=== PATIENT | female | born 1965 | race Caucasian/White ===

== ENCOUNTER 2023-06-26 09:45 | Outpatient (OUT) | payer BC, SELFPAY ==
[2023-06-26 10:52] LABS: Basophils Absolute Auto 0.1 10^3/uL (0.0-0.1); Eosinophils Absolute Auto 0.2 10^3/uL (0.0-0.7); Eosinophils Percent Auto 3.6 % (0.9-7.0); Hemoglobin 13.7 g/dL (12.0-16.0); Immature Granulocytes Abs Auto 0.02 10^3/uL (0.00-0.03); Immature Granulocytes Pct Auto 0.3 % (0.0-0.5); Lymphocytes Absolute Auto 2.2 10^3/uL (1.2-3.8); Lymphocytes Percent Auto 32.1 % (20.5-60.0); Mean Corpuscular HGB Conc 31.9 g/dL (29.9-35.2); Mean Corpuscular Hemoglobin 29.1 pg (26.7-34.0); Mean Corpuscular Volume 91.5 fL (81.0-99.0); Monocytes Absolute Auto 0.4 10^3/uL (0.3-0.8); Monocytes Percent Auto 6.6 % (1.7-12.0); Neutrophils Absolute Auto 3.8 10^3/uL (1.4-6.5); Neutrophils Percent Auto 56.4 % (43.0-75.0); Platelet Count 361 10^3/uL (150-450); Red Cell Distribution Width 12.8 % (11.0-15.0); White Blood Count 6.7 10^3/uL (4.0-11.0)
[2023-06-26 11:01] LABS: Alanine Aminotransferase 20 U/L (14-59); Albumin Level 3.2 g/dL (3.4-5.0); Alkaline Phosphatase 66 U/L (46-116); Aspartate Amino Transferase 12 U/L (15-37); BUN Creatinine Ratio 10.7; Bilirubin Total 0.4 mg/dL (0.2-1.0); Calcium 8.5 mg/dL (8.5-10.1); Carbon Dioxide 26.1 mmol/L (21.0-32.0); Chloride 106 mmol/L (98-107); Chol HDL Ratio 2.6; Cholesterol 170 mg/dL (<=200); Estimated GFR (African America >60 (>=60); Estimated GFR (Non-African Ame >60 (>=60); Globulin 3.3 g/dL; Glucose 89 mg/dL (74-106); HDL Cholesterol 65 mg/dL (40-60); Potassium 4.1 mmol/L (3.5-5.1); Sodium 142 mmol/L (136-145); Total Protein 6.5 g/dL (6.4-8.2); Triglycerides 80 mg/dL (<=150)
[2023-06-26 14:30] LABS: Free T4 0.77 ng/dL (0.76-1.46)
== END 2023-06-26 09:46 | disposition home or self-care (01) ==
LOC: LAB 09:50
PROVIDERS: PCP Family Medicine; Visit Provider Family Medicine
DX: E55.9 Vitamin D deficiency, unspecified (principal); Z00.00 Encounter for general adult medical examination without abnormal findings
CPT/HCPCS: 36415; 80053; 80061; 82306; 84439; 84443; 85025

== ENCOUNTER 2024-02-06 09:30 | Outpatient (OUT) | payer BC, SELFPAY ==
--- NOTE | 2024-02-06 | US_ITS ---
The [address] [address] Patient Name: AGUEDA MARISCAL MRN: [id number] date: 1965 Sex: F Assigned Patient Location: US Current Patient Location: US Accession/Order Number: [id number] Exam Date: 02/06/2024 09:40 Report Date: 02/06/2024 12:44 At the request of: BISMARK FALCON Procedure: US pelvis w/ transvaginal EXAMINATION: US pelvis w/ transvaginal HISTORY: POSTMENOPAUSAL BLEDDING COMPARISON: No relevant comparison available. FINDINGS: Transabdominal and transvaginal images The uterus is normal in size and contour measuring 8.0 x 4.7 x 5.6 cm. Myometrial mass measuring 1. 8.2 x 1.8 cm, a fibroid is favored The endometrium measures 10.9 mm The ovaries are not visualized No free fluid US/US pelvis w/ transvaginal IMPRESSION: Thickened endometrial stripe. In light of the patient's postmenopausal bleeding, histopathologic diagnosis is recommended Electronically authenticated by: NATALIE MCKEON Date: 02/06/2024 12:44
--- NOTE | 2024-02-06 | MM_ITS ---
Patient Name: AGUEDA MARISCAL MR#: [id number] : 1965 Exam Date: 02/06/2024 Ordering Doctor: DR BISMARK FALCON RADIOLOGY REPORT PROCEDURE: MM TOMOSYNTHESIS SCREENING BI COMPARISON: MM TOMOSYNTHESIS SCREENING BI, 03/24/2020. MM TOMOSYNTHESIS SCREENING BI, 05/17/2021. INDICATIONS: ENCOUNTER FOR SCREENING FOR MALIGNANT OF BREAST Calculator Name NCI Breast Cancer Risk Assessment Tool 5 Year Breast Cancer Risk 1.50% Lifetime Breast Cancer Risk 9.10% Personal Breast Cancer No Personal Ovarian Cancer No Treatments None Family Cancers Mother with uterine cancer at age 25; Mother with colon cancer at age 52; Aunt-maternal with uterine cancer at age ~30; Aunt-maternal with uterine cancer at age ~30. LOCATION: [facility] BREAST COMPOSITION: The breasts are heterogeneously dense,which may obscure small masses. FINDINGS: DIAGNOSTIC CATEGORY 2--BENIGN FINDING. NO CHANGE FROM COMPARISON. Scattered benign-appearing nodules are present. Scattered benign-appearing calcifications are present. Scattered benign-appearing lymph nodes are present. RIGHT BREAST: No significant suspicious finding. LEFT BREAST: No significant suspicious finding. RECOMMENDATIONS: ROUTINE MAMMOGRAM AND CLINICAL EVALUATION IN 12 MONTHS. PLEASE NOTE: A NORMAL MAMMOGRAM DOES NOT EXCLUDE THE POSSIBILITY OF BREAST CANCER. A CLINICALLY SUSPICIOUS PALPABLE LUMP SHOULD BE BIOPSIED. Dictated by: Jayjay Hubbard MD on 02/06/2024 at 14:19 Approved by: Jayjay Hubbard MD on 02/06/2024 at 14:20
--- OUTSIDE RECORDS SUMMARY | 2024-02-06 09:34 | XMS_ITS | CCD ---
Author Organization [facility] Inform ion Partnership [facility] Care Team Providers Care Fire Support Specialist Name Role Phone ANDREA RESTREPO Attending Unavailable ANDREA RESTREPO Consulting Unavailable NADREA RESTREPO Admitting Unavailable SAIMA PHAM Consulting Unavailable SAIMA PHAM Admitting Unavailable SAIMA PHAM Attending Unavailable SAIMA PHAM Consulting Unavailable SAIMA PHAM KAREN Admitting Unavailable SAIMA PHAM Attending Unavailable ANDREA RESTREPO Admitting Unavailable ANDREA RESTREPO Attending Unavailable ANDREA RESTREPO Consulting Unavailable MD Valerio Cortes Primary Care Provider [phone] DO Keaton Hayes Attending Provider Keaton Hayes Admitting Unavailable Keaton Hayes Attending Unavailable Valerio Cortes Primary Care Unavailable Mary Cortes Unavailable Allergies Allergy Classification Reported Allergen(s) Allergy Type Date of Onset Reaction(s) Facility (2 sources) Codeine Drug Allergy 0 Rash [facility] Repository (2 sources) Ibuprofen Drug Allergy 1 (Ferdinand) 06/17/2011 [facility] (2 sources) Ibuprofen; Translations: [ibuprofen] Drug Allergy 0 irregular heart rate [facility] (1 source) Codeine Drug Allergy 0 [facility] Repository (1 source) Codeine Drug Allergy (Ferdinand) 06/17/2011 [facility] Other Medications Current Medications Medication Drug Class(es) Dates Sig (Normalized) Sig (Original) aluminum hydroxide 80 mg / magnesium trisilicate 14.2 mg chewable tablet (1 source) Start: 05-14-2017 take 1 tablet by mouth once daily Al Hyd-Mg Tr-Alg Ac-Sod Bicarb (Gaviscon) 80-14.2 mg Tablet,Chewable Active 1 TAB PO Daily May 14, 2017 12:00am cholecalciferol 0.05 mg oral capsule (1 source) Vitamin D take 1 capsule by mouth every twenty-four hours Vitamin D 50 MCG (1999) 1 capsule Orally Once a day Active Citalopram (2 sources) Serotonin Reuptake Inhibitor Start: 01-30-2023 take 30 mg by mouth once daily Citalopram Active 30 MG PO Daily January 30, 2023 12:00am take 1 tablet by venkatesh th every twenty-four hours Citalopram Hydrobromide 20 MG 1 tablet Orally Once a day Active dextromethorphan hydrobromide 15 mg / guaiFENesin 400 mg / pseudoephedrine hydrochloride 60 mg oral tablet (1 source) alpha-Adrenergic Agonist, Uncompetitive S-mmvrxz-B-aspartate Receptor Antagonist, Sigma-1 Agonist Start: 07-31-2023 take 4 tablets by mouth every twenty-four hours as needed Capmist DM 60-15-400 MG as needed Orally every 4-6 hours as needed, max 4 tablets in 24 hours for 5 days Jul, Active estradiol 1 mg oral tablet (1 source) Estrogen take 1 tablet by mouth every twenty-four hours Estradiol 1 MG 1 tablet Orally Once a day Active medroxyPROGESTERone acetate 2.5 mg oral tablet (1 source) Progestin Start: 01-30-2023 take 2.5 mg by mouth once daily Medroxyprogesterone Active 2.5 MG PO Daily January 30, 2023 12:00am methylPREDNISolone 4 mg oral tablet (1 source) Corticosteroid Start: 07-31-2023 methylPREDNISolone 4 MG as directed Orally for 6 Jul, Active progesterone 100 mg oral capsule (1 source) Progesterone take 1 capsule by mouth every twenty-four hours Progesterone 100 MG 1 capsule at bedtime Orally Once a day Active simethicone 62.5 mg oral film (2 sources) Start: 05-14-2017 take 80 mg by mouth before mealtime Simethicone (Gas-X) 62.5 mg Strip Active 80 MG PO Before meals May 14, 2017 12:00am Start: 05-01-2017 take 1 tablet by venkatesh th four times daily at bedtime as needed Gas-X 80 MG 1 tablet after meals and at bedtime as needed Orally Four times a day Apr, Not-Taking/PRN Completed/Discontinued Medications Medication Drug Class(es) Dates Sig (Normalized) Sig (Original) acetaminophen 325 mg / HYDROcodone bitartrate 5 mg oral tablet (1 source) Opioid Agonist Start: 0 End: 3 take 1 tablet by mouth every six hours Hydrocodone-Acetaminoph en ([place]) 5-325 mg tablet Discontinued 1 TAB PO Q6H 10 3 October 03, 2019 January 30, 2023 7:25am Aluminum Hydroxide / magnesium carbonate (1 source) Start: 7 take 2 tablets by mouth four times daily at bedtime as needed Gaviscon 80-14.2 MG 2 tablets after meals and at bedtime as needed Orally Four times a day Apr, Not-Taking/PRN docusate sodium 100 mg oral capsule (1 source) take 1 capsule by mouth every twenty-four hours Colace 100 MG 1 capsule as needed Orally Once a day Not-Taking/PRN Fiber-Caps (1 source) Fiber-Caps Not-Taking/PRN hydroCHLOROthiazide 12.5 mg oral capsule (1 source) Thiazide Diuretic Start: 7 End: 3 take 12.5 mg by mouth once daily Hydrochlorothiazide Discontinued 12.5 MG PO Daily May 14, 2017 12:00am January 30, 2023 7:25am IB Guard (12 count box) 90 mg ultra-purified peppermint oil (1 source) take 90 mg by mouth three times daily as needed IB Guard (12 count box) 90 mg ultra-purified peppermint oil 1-2 PO as needed up to 3 times a day Not-Taking/PRN linaclotide (1 source) Guanylate Cyclase-C Agonist Start: 7 take 1 capsule by mouth once daily as needed Linzess 72 72 mcg 1 capsule po one time daily May, Not-Taking/PRN melatonin 3 mg oral tablet (1 source) Start: 7 End: 3 take 3 mg by mouth at bedtime Melatonin Discontinued 3 MG PO Bedtime May 14, 2017 12:00am January 30, 2023 7:25am ondansetron 4 mg oral tablet (2 sources) Serotonin-3 Receptor Antagonist Start: End: 3 take 1 tablet by mouth three times daily Ondansetron Hcl (Zofran) 4 mg tablet Discontinued 4 MG PO Three times daily May 14, 2017 12:00am January 30, 2023 7:25am take 1 tablet by venkatesh th once daily as needed Zofran 4 mg 1 tablets Orally Once a day Not-Taking/PRN pantoprazole 40 mg delayed release oral tablet (2 sources) Proton Pump Inhibitor Start: 05-14-2017 End: 01-30-2023 take 1 tablet by mouth once daily Pantoprazole (Protonix) 40 mg tablet,delayed release (DR/EC) Discontinued 40 MG PO Daily 30 October 03, 2019 1:00am January 30, 2023 7:26am sucralfate 1000 mg oral tablet (1 source) Aluminum Complex Start: 10-03-2019 End: 01-30-2023 take 1 tablet by mouth at bedtime Sucralfate (Carafate) 1 gram tablet Discontinued 1 GM PO Before meals and at bedtime 60 October 03, 2019 1:00am January 30, 2023 7:26am Problems Active Problems Problem Classification Problem Date Documented Da te Episodic/Chronic Esophageal disorders (2 sources) Gastro-esophageal reflux disease with esophagitis; Translations: [Gastroesophageal reflux disease with esophagitis] 10-03-2019 Chronic Gastritis and duodenitis (1 source) Atrophic gastritis; Translations: [Unspecified chronic gastritis without bleeding] Chronic Menopausal disorders (1 source) Postmenopausal bleeding; Translations: [Postmenopausal bleeding] Onset: 01-30-2023 Chronic Nausea and vomiting (1 source) Nausea and vomiting; Translations: [Nausea with vomiting, unspecified] Episodic Nonspecific chest pain (1 source) Chest pain; Translations: [Chest pain, unspecified] 10-03-2019 Episodic Other gastrointestinal disorders (1 source) Constipation; Translations: [Constipation, unspecified] Episodic Other gastrointestinal disorders (1 source) Diarrhea; Translations: [Diarrhea, unspecified] Episodic Other gastrointestinal disorders (1 source) Constipation alternates with diarrhea; Translations: [Other specified symptoms and signs involving the digestive system and abdomen] Episodic Other upper respiratory infections (1 source) Acute upper respiratory infection, unspecified Episodic Unclassified (3 sources) CONTACT W/AND (SUSP) EXPOS COVID-19; Translations: [CONTACT W/AND (SUSP) EXPOS COVID-19] Onset: 02-20-2022 Past or Other Problems Problem Classification Problem Date Documented Da te Episodic/Chronic Immunizations and screening for infectious disease (4 sources) Encounter for immunization; Translations: [ENCOUNTER FOR IMMUNIZATION] Onset: 06-01-2021 Episodic Unclassified (1 source) CONTACT W/AND (SUSP) EXPOS COVID-19; Translations: [CONTACT W/AND (SUSP) EXPOS COVID-19] Onset: 02-19-2022 Unclassified (1 source) Contact with and (suspected) exposure to covid-19 Z20.822 Results Test Name Value Interpretation Reference Range Facil ity COVID + FLU Quick Testingon 07-31-2023 SARS-CoV-2 (COVID-19) RNA MANUEL+probe Ql (Unsp spec) Negative [facility] [id number] Other COVID + FLU Quick Testing Negative [facility] Other Basophils Auto (Bld) [#/Vol] Ordered By: Keaton Hayes on 01-30-2023 Basophils (Bld) [#/Vol] 0.0 10*3/uL 0.0-0.2 [facility] Basophils/100 WBC Auto (Bld) Ordered By: Keaton Hayes on 01-30-2023 Basophils/100 WBC (Bld) 0.4 % . [facility] Complete Blood Count Auto Di ffon 01-30-2023 Basophils (Bld) [#/Vol] 0.0 10*3/uL Normal 0.0-0.2 [facility] Comment on above: Result Comment: PERF ORMED BY: [place] [address] PATHOLOGIST ACCOUNTING POLICY CONSULTANT HORACE BURKS M.D. Performed By: #### C BC #### [address] Basophils/100 WBC (Bld) 0.4 % Normal . [facility] Comment on above: Performed By: #### C BC #### [facility] [address] [place] [address] Eosinophils (Bld) [#/Vol] 0.2 10*3/uL Normal 0.0-0.45 [facility] Comment on above: Performed By: #### C BC #### [facility] [address] Eosinophils/100 WBC (Bld) 3.3 % Normal . [facility] Comment on above: Performed By: #### C BC #### [facility] [address] Erythrocyte distribution width (RBC) [Ratio] 12.8 % Normal 11.9-15.3 [facility] Comment on above: Performed By: #### C BC #### [address] Hematocrit (Bld) [Volume fraction] 41.0 % Normal 34.0-46.4 [facility] Comment on above: Performed By: #### C BC #### [address] Hemoglobin (Bld) [Mass/Vol] 13.7 g/dL Normal 11.8-15.4 [facility] Comment on above: Performed By: #### C BC #### [address] Lymphocytes (Bld) [#/Vol] 2.5 10*3/uL Normal 1.00-4.8 [facility] Comment on above: Performed By: #### C BC #### [address] Lymphocytes/100 WBC (Bld) 32.9 % Normal . [facility] Comment on above: Performed By: #### C BC #### [address] MCH (RBC) [Entitic mass] 29.5 pg Normal 24.7-34.3 [facility] Comment on above: Performed By: #### C BC #### [address] MCV (RBC) [Entitic vol] 88.0 fL Normal 80-100 [facility] Comment on above: Performed By: #### C BC #### [facility] [address] Mean Corpuscular HGB Conc 33.5 g/dL Normal 32.0-35.0 [facility] Comment on above: Performed By: #### C BC #### [facility] [address] Monocytes (Bld) [#/Vol] 0.5 10*3/uL Normal 0.0-0.8 [facility] Comment on above: Performed By: #### C BC #### [address] Monocytes/100 WBC (Bld) 6.6 % Normal . [facility] Comment on above: Performed By: #### C BC #### [address] Neutrophils (Bld) [#/Vol] 4.3 10*3/uL Normal 1.8-7.7 [facility] Comment on above: Performed By: #### C BC #### [address] Neutrophils/100 WBC (Bld) 56.8 % Normal . [facility] Comment on above: Performed By: #### C BC #### [address] NRBC% 0.1 /100{WBC} Normal 0-0.5 [facility] Comment on above: Performed By: #### C BC #### [address] Platelet mean volume (Bld) [Entitic vol] 8.4 fL Normal 6.3-10.7 [facility] Comment on above: Performed By: #### C BC #### [address] Platelets (Bld) [#/Vol] 310 10*3/uL Normal 150-450 [facility] Comment on above: Performed By: #### C BC #### [place] [address] [place] RBC (Bld) [#/Vol] 4.66 10*6/uL Normal 3.60-5.00 [facility] Comment on above: Performed By: #### C BC #### [facility] [address] WBC (Bld) [#/Vol] 7.6 10*3/uL Normal 3.8-11.6 [facility] Comment on above: Performed By: #### C BC #### [facility] [address] ECG 12 lead ECGon 01-30-2023 ECG 12 lead ECG [facility] [place] [address] [place] [address] Electrocardiograph Report Signed Patient: Agueda Scott MR#: [id number] : 1965 Acct:[id number] Age/Sex: 57 / F ADM Date: 01/30/23 Loc: [place] Room: Type: [facility] Attending Dr: Keaton Hayes DO Ordering Provider: Keaton Zafar MD Date of Service: 01/30/23 ECG/ECG 12 lead ECG: preop Copies to: Test Reason : Blood Pressure : / mmHG Vent. Rate : 075 BPM Atrial Rate : 075 BPM P-R Int : 116 ms QRS Dur : 132 ms QT Int : 474 ms P-R-T Axes : 029 020 097 degrees QTc Int : 529 ms Normal sinus rhythm Left bundle branch block Abnormal ECG When compared with ECG of 02-OCT-2019 23:37, Left bundle branch block is now present Confirmed by PERLA HYLTON DO ([id number]) on 01/30/2023 10:27:07 PM Referred By: Electronically Signed By:PERLA HYLTON DO Transcribed By: MUS Signed By Perla Hylton DO 01/30 Normal [facility] Eosinophils Auto (Bld) [#/Vo l]Ordered By: Keaton Hayes on 01-30-2023 Eosinophils (Bld) [#/Vol] 0.2 10*3/uL 0.0-0.45 [facility] Eosinophils/100 WBC Auto (Bl d)Ordered By: Keaton Hayes on 01-30-2023 Eosinophils/100 WBC (Bld) 3.3 % . [facility] Erythrocyte distribution wid th Auto (RBC) [Ratio]Ordered By: Keaton Hayes on 01-30-2023 Erythrocyte distribution width (RBC) [Ratio] 12.8 % 11.9-15.3 [facility] Hematocrit Auto (Bld) [Volum e fraction]Ordered By: Keaton Hayes on 01-30-2023 Hematocrit (Bld) [Volume fraction] 41.0 % 34.0-46.4 [facility] Hemoglobin [Mass/volume] in BloodOrdered By: Keaton Hayes on 01-30-2023 Hemoglobin (Bld) [Mass/Vol] 13.7 g/dL 11.8-15.4 [facility] [place] 01-30-2023 L Specimen: [id number] Received: 01/30/23 Status: AMOR Lo Num: [id number] Spec Type: Surgical Subm Dr: Keaton Hayes, Tissues: A Endometrium - Curettings ([facility]) Procedures: JARRETT/Ajit, Gross/Micro L4 Age/ Patient Sex Location Account Attending Physician TylerМарияAgueda A 57/F [place] [id number] Keaton Hayes,DO SPEC NUM: [id number] RECD: 01/30/23 STATUS: AMOR LO NUM: [id number] PRIYANK: 01/30/23- SUBM DR: Keaton Hayes, ENTERED: 01/30/[address]: VILMA TYPE: Surgical DEPT: S ORDERED: HE/2, Gross/Micro L4 ORDERED: HE/2, Gross/Micro L4 Pathological Diagnosis Uterus, endometrium, curettings: - Weakly proliferative endometrium with focal features of polyp. Clinical Information Postmenopausal bleeding Gross Description Received in formalin labeled with the patient's name, date of and endo curettings is a 2.8 x 1.6 x 0.2 cm aggregate of red-holcomb tissue. Entirely submitted in one cassette labeled A1. Microscopic Description Two H E slides reviewed. The microscopic examination confirms the diagnosis. CPT Codes 40017 Specimen: [id number] Received: 01/30/23 Status: AMOR Lo Num: [id number] Spec Type: Surgical Subm Dr: Keaton Hayes DO Tissues: A Endometrium - Curettings (EMC) Procedures: HE/Ajit, Jessie/Micro L4 Patient: TylerAgueda Alethea [id number] (Continued) Signed (signature on file) Keaton Garcia MD 02/03/23 1238 Normal [facility] Leukocytes [#/volume] correc pam for nucleated erythrocytes in Blood by Automated counOrdered By: Keaton Hayes on 01-30-2023 WBC corrected for nucl RBC Auto (Bld) [#/Vol] 7.6 10*3/uL 3.8-11.6 [facility] Lymphocytes Auto (Bld) [#/Vo l]Ordered By: Keaton Hayes on 01-30-2023 Lymphocytes (Bld) [#/Vol] 2.5 10*3/uL 1.00-4.8 [facility] Lymphocytes/100 WBC Auto (Bl d)Ordered By: Keaton Hayes on 01-30-2023 Lymphocytes/100 WBC (Bld) 32.9 % . [facility] MCH Auto (RBC) [Entitic mass ]Ordered By: Keaton Hayes on 01-30-2023 MCH (RBC) [Entitic mass] 29.5 pg 24.7-34.3 [facility] MCHC Auto (RBC) [Mass/Vol]Or dered By: Keaton Hayes on 01-30-2023 MCHC (RBC) [Mass/Vol] 33.5 g/dL 32.0-35.0 [facility] MCV Auto (RBC) [Entitic vol] Ordered By: Keaton Hayes on 01-30-2023 MCV (RBC) [Entitic vol] 88.0 fL 80-100 [facility] Monocytes Auto (Bld) [#/Vol] Ordered By: Keaton Hayes on 01-30-2023 Monocytes (Bld) [#/Vol] 0.5 10*3/uL 0.0-0.8 [facility] Monocytes/100 WBC Auto (Bld) Ordered By: Keaton Hayes on 01-30-2023 Monocytes/100 WBC (Bld) 6.6 % . [facility] Neutrophils Auto (Bld) [#/Vo l]Ordered By: Keaton Hayes on 01-30-2023 Neutrophils (Bld) [#/Vol] 4.3 10*3/uL 1.8-7.7 [facility] Neutrophils/100 WBC Auto (Bl d)Ordered By: Keaton Hayes on 01-30-2023 Neutrophils/100 WBC (Bld) 56.8 % . [facility] Nucleated erythrocytes [Pres ence] in Blood by Automated countOrdered By: Keaton Hayes on 01-30-2023 Nucleated RBC Auto Ql (Bld) 0.1 /100{WBC} 0-0.5 [facility] Platelet mean volume Auto (B ld) [Entitic vol]Ordered By: Keaton Hayes on 01-30-2023 Platelet mean volume (Bld) [Entitic vol] 8.4 fL 6.3-10.7 [facility] Platelets Auto (Bld) [#/Vol] Ordered By: Keaton Hayes on 01-30-2023 Platelets (Bld) [#/Vol] 310 10*3/uL 150-450 [facility] RBC Auto (Bld) [#/Vol]Ordere d By: Keaton Hayes on 01-30-2023 RBC (Bld) [#/Vol] 4.66 10*6/uL 3.60-5.00 [facility] WBC Auto (Bld) [#/Vol]Ordere d By: Keaton Hayes on 01-30-2023 WBC (Bld) [#/Vol] 7.6 10*3/uL 3.8-11.6 [facility] Covid-19 PCR (CVDTBH)on 02-08 SARS-CoV-2 (COVID-19) RNA MANUEL+probe Ql (Unsp spec) Not detected Normal NOT DETECTED [facility] Comment on above: Result Comment: When diagnostic testing is negative, the possibility of a false negative should be considered in the context of a patient's recent exposures and the presence of clinical signs and symptoms consistent with SARS-CoV-2. This test is not yet approved or cleared by the [place] FDA. When there are no FDA-approved or cleared tests available, and other criteria are met, FDA can make tests available under an emergency access mechanism called an Emergency Use Authorization (EUA). The EUA for this test is supported by the [place] of Health and Human Service's declaration that circumstances exist to justify the emergency use of in vitro diagnostics for the detection and/or diagnosis of the virus that causes COVID-19. This EUA will remain in effect for the duration of the COVID-19 declaration justifying emergency of IVDs, unless it is terminated or revoked by the FDA (after which the test may no longer be used). Performed By: #### C VDTBH #### [facility] [address] [address] [address] Mary Crump Covid-19 PCR (CVDTB)on 05-12 SARS-CoV-2 (COVID-19) RNA MANUEL+probe Ql (Unsp spec) Not detected Normal NOT DETECTED [facility] Comment on above: Result Comment: When diagnostic testing is negative, the possibility of a false negative should be considered in the context of a patient's recent exposures and the presence of clinical signs and symptoms consistent with SARS-CoV-2. Performed By: #### C VDTBH #### [facility] [address] [place] [address] Dr. Mary Crump Vital Signs Date Time Vital Sign Value Performing Clinician Facility 07-31-2023 11:30-0500 Body height 157.48 cm Mary Cortes Other [facility] Other 07-31-2023 11:30-0500 Body mass index (BMI) [Ratio] 30.54 kg/m2 Mary Cortes Other [facility] Other 07-31-2023 11:30-0500 Body temperature 97.2 [degF] Mary Cortes Other [facility] Other 07-31-2023 11:30-0500 Body weight 75.75 kg Mary Cortes Other [facility] Other 07-31-2023 11:30-0500 Respiratory rate 18 /min Mary Cortes Other [facility] Other 07-31-2023 11:30-0500 SaO2% (BldA) [Mass fraction] 98 % Mary Cortes Other [facility] Other 01-30-2023 10:03-0400 Diastolic blood pressure 75 mm[Hg] MD Valerio Cortes Work Phone: [facility] 01-30-2023 10:03-0400 Heart rate 76 /min MD Valerio Cortes Work Phone: [facility] 01-30-2023 10:03-0400 Respiratory rate 16 /min MD Valerio Cortes Work Phone: [facility] 01-30-2023 10:03-0400 SaO2% (BldA) [Mass fraction] 94 % MD Valerio Cortes Work Phone: [facility] 01-30-2023 10:03-0400 Systolic blood pressure 120 mm[Hg] MD Valerio Cortes Work Phone: [facility] 01-30-2023 09:04-0400 Body temperature 97 [degF] MD Valerio Cortes Work Phone: [facility] 01-30-2023 07:28-0400 Body height 157.48 cm MD Valerio Cortes Work Phone: [facility] 01-30-2023 07:28-0400 Body weight 72.57 kg MD Valerio Cortes Work Phone: [facility] Encounters Encounter Date Encounter Type Care Provider Facility Start: 07-31-2023 End: 07-31-2023 ambulatory Mary Cortes Other [facility] Other Start: 07-31-2023 Office outpatient ne w 30 minutes Mary Cortes [facility] Start: 01-30-2023 End: 01-30-2023 ambulatory Keaton Hayes Facility:[facility] Start: 01-30-2023 End: 01-30-2023 Admission to same day surgery center MD Valerio Cortes Work Phone: [facility] [place] Start: 01-30-2023 End: 01-30-2023 ambulatory MD Valerio Cortes Work Phone: [facility] Work Phone: Start: 02-19-2022 End: 02-19-2022 ambulatory ANDREA RESTREPO Facility:[facility] Start: 06-06-2021 End: 06-07-2021 ambulatory SAIMA PHAM Facility:[facility] Start: 06-01-2021 End: 06-02-2021 ambulatory SAIMA PHAM Facility:[facility] Start: 05-31-2021 End: 05-31-2021 ambulatory ANDREA RESTREPO Facility:[facility] Procedures Date Procedure Procedure Detail Performing Clinician Start: 01-30-2023 Hysteroscopy with endometrial ablation MD Valerio Cortes Work Phone: Plan of Treatment Date Care Activity Detail Author Start: 01-30-2023 [facility] Patient referral [facility] Work Phone: Payers Date Payer Category Payer Self-pay [id number] 1965 Unknown [id number] 2.16.84 [id number] 1965 Unknown [id number] 2.16.84 [id number] 1958 Self-pay [id number] 1958 Unknown [id number] [facility] [id number] Unknown [id number] 2.16.84 [id number] Unknown [id number] 2.16.84 [id number] Unknown [id number] 2.16.8 [id number] Social History Date Type Detail Facility Start: 01-30-2023 Tobacco smoking status NHIS Never smoked tobacco (finding) [facility] Start: 1965 Sex Assigned At Female F [facility] Sex Assigned At Sex Assigned At Bir th [facility] Other Goals Date Patient Goal Desired Activity /State Evaluation note 07-31-2023 Note Date & Type Note Facility 07-31-2023 Evaluation note Encounter Date Diagnosis Assessment Notes Jul, Contact with and (suspected) exposure to covid-19 (ICD-10 - Z20.822) Jul, Viral URI with cough (ICD-10 - J06.9) Advised patient that rapid COVID/Influenza A/B test and rapid Strep test was negative today. Advised patient that will treat as viral URI. Will send in rx of Capmist and steroid to use as directed. Encouraged supportive care as directed, increase fluids and rest, Tylenol as directed, cool mist humidifier, throat lozenges. Discussed infection control practices such as good hand washing and mask wearing. Patient to follow up with PCP if symptoms persist or worsen despite treatment. Immediate eval for SOB, difficulty breathing, chest pain, fevers that do not break with antipyretic or any other concerning symptoms as reviewed on patient education handout. Patient verbalizes understanding and is agreeable to treatment plan. Patient left in stable condition [facility] Other History general Narrative - Reported 04-11-2008 Note Date & Type Note Facility 04-11-2008 History general N arrative - Reported Type Medical History irrregular heartbeat Medical History GERD Medical History Acute bronchitis Surgical History gallbladder removed 2002 Surgical History D&C x2 04/2008 Hospitalization History see above [employer] Other Evaluation note Note Date & Type Note Facility Evaluation note No assessment information availa [facility] [place] Work Phone: Hospital Discharge instructions Note Date & Type Note Facility Hospital Discharge instructions Additional Instructions DISCHARGE INSTRUCTIONS FOR DILATION & CURETTAGE (D & C) -Today, outpatient surgery has become a vital link in the health care program. Outpatient D&C is a safe and common practice and this paper is designed to help you know what to expect when you go home and under what circumstances you should give me a call. I will have all of your labs and surgery reports for you when you come in for your follow-up. -To reach me in an emergency, call the office at [[phone]]. TODAY -Take it easy the rest of the day. If you have received a general anesthetic or injections to help you relax for the local procedure you should not drive a car for at least 8 hours after surgery to make sure all of the medication has worn off. ACTIVITIES -There are no restrictions on your normal activities. Generally, you may expect to go back to work the next day unless I have given you other instructions. You should shower daily and practice good personal habits to offset the chance of infection. Avoid intercourse for one week after your surgery and you should not douche. Most women experience minimal disruption of their normal routines. BLEEDING -The amount of bleeding after a D&C varies somewhat. Some women have very little requiring only a light pad for a few days. Other women may bleed similar to a heavy period for a week or so. [You may wear Tampax if you wish, but be sure to change often.] Do not be alarmed if you expel some clots. -If I have given you a prescription to control bleeding, get it filled on your way home, if possible, and take all the pills according to the directions on the bottle. These pills may increase the amount of your flow and give you cramping similar to first day menstrual cramps. Two Motrin every 6 hours or Anaprox every 12 hours and a heating pad should be sufficient to control any discomfort you may have. If your bleeding becomes bright red and becomes heavy enough that you have used one full pad an hour times 4 hours, I want you to give me a call. Also, if within the first week after surgery you experience chills, fever, and a change in the odor, color, or character of your drainage, you may be developing an infection and you should call me. You may expect your next period anywhere from 2 to 6 weeks after your D&C. CONTROL -Do not assume that you cannot get soon after a D&C. Practice your usual method of control beginning with the first time you have intercourse after you have surgery. If you are taking control pills, please continue them unless told otherwise. DIET -Any diet is permissible FOLLOW UP -Please call the office at [phone] to arrange an appointment to see me in 2 weeks [ ] [facility] Work Phone: Summary Purpose Family History No Family History Records FoundNo Family History Records Found Advance Directives Advance Directive Response Recorded Date/ Time Advance Directives No May 13, 2017 9:06am Chief Complaint and Reason for Visit Chief Complaint Post Menopausal Blee ding Additional Source Comments INFORMATION SOURCE (unrecogn ized section and content) DATE CREATED AUTHOR 02/27/2022 [facility] DATE CREATED AUTHOR AUTHOR'S ORGANIZ ATION 02/19/2023 [facility] Care Teams (unrecognized sec tion and content) Team Status: Active Member Role Status Dates Valerio Cortes MD Primary Care Provider Active Team Status: Inactive Member Role Status Dates Valerio Cortes MD Primary Care Provider Active Keaton Hayes DO Attending Provider Active REASON FOR VISIT (unrecogniz ed section and content) COUGH, GREEN PHLEM , CONGEST ION, CHEST AND HEAD, DIZZINESS FOR RECORDS PERTAINING TO PATIENTS WHO ARE OR HAVE BEEN ENROLLED IN A CHEMICAL DEPENDENCY/SUBSTANCEABUSE PROGRAM, SOME INFORMATION MAY BE OMITTED. This clinical summary was aggregated from multiple sources. Caution should be exercised in using it in the provision of clinical care. This summary normalizes information from multiple sources, and as a consequence, information in this document may materially change the coding, format and clinical context of patient data. In addition, data may be omitted in some cases. CLINICAL DECISIONS SHOULD BE BASED ON THE PRIMARY CLINICAL RECORDS. [employer] [facility]. provides no warranty or guarantee of the accuracy or completeness of information in this document.
== END 2024-02-06 09:31 | disposition home or self-care (01) ==
LOC: US 09:31
PROVIDERS: PCP Family Medicine; Visit Provider Obstetrics & Gynecology
DX: Z12.31 Encounter for screening mammogram for malignant neoplasm of breast (principal); N95.0 Postmenopausal bleeding; Z80.8 Family history of malignant neoplasm of other organs or systems; Z80.0 Family history of malignant neoplasm of digestive organs
CPT/HCPCS: 76830; 76856; 77063; 77067

== ENCOUNTER 2024-05-21 14:02 | Outpatient (OUT) | payer BC, SELFPAY ==
--- OUTSIDE RECORDS SUMMARY | 2024-05-21 14:09 | XMS_ITS | CCD ---
Author Organization [facility] Care Team Providers Care Tax Investigator Name Role Phone ANDREA RESTREPO Attending Unavailable RADU RESTREPOA Consulting Unavailable LAURO ANDREA Admitting Unavailable SAIMA PHAM Consulting Unavailable NANCY PHAMUEL KAREN Admitting Unavailable SAIMA PHAM KAREN Attending Unavailable ANKIT SAIMA KAREN Consulting Unavailable ANKIT SAIMA KAREN Admitting Unavailable SAIMA PHAM KAREN Attending Unavailable LAURO ANDREA Admitting Unavailable RADU RESTREPOA Attending Unavailable ANDREA RESTREPO Consulting Unavailable MD Valerio Cortes Primary Care Provider DO Bismark Hayes Attending Provider Mary Cortes Unavailable MD Valerio Cortes Primary Care Provider [phone] DO Bismark Hayes Attending Provider BISMARK HAYES Attending Unavailable BISMARK HAYES Attending Unavailable BISMARK HAYES Referring Unavailable Valerio Cortes Primary Care Unavailable Bismark Hayes Attending Unavailable Bismark Hayes Admitting Unavailable Allergies Allergy Classification Reported Allergen(s) Allergy Type Date of Onset Reaction(s) Facility (3 sources) Codeine Drug Allergy 0 Rash, Rash, (Ferdinand) 06/17/2011 [facility] Repository (2 sources) Ibuprofen Drug Allergy 1 (Ferdinand) 06/17/2011 [facility] (3 sources) Ibuprofen; Translations: [ibuprofen] Drug Allergy 0 irregular heart rate, irregular heart rate, (Ferdinand) 06/17/2011 [facility] (1 source) Codeine Drug Allergy (Ferdinand) 06/17/2011 [facility] Other (1 source) Codeine Drug Allergy [facility] Repository Medications Current Medications Medication Drug Class(es) Dates Sig (Normalized) Sig (Original) aluminum hydroxide 80 mg / magnesium trisilicate 14.2 mg chewable tablet (2 sources) Start: 05-14-2017 take 1 tablet by mouth once daily Al Hyd-Mg Tr-Alg Ac-Sod Bicarb (Gaviscon) 80-14.2 mg Tablet,Chewable Active 1 TAB PO Daily May 14, 2017 12:00am cholecalciferol 0.05 mg oral capsule (2 sources) Vitamin D Start: 03-18-2024 take 1 capsule by mouth once daily in the morning Cholecalciferol (Vitamin D3) Active 120 MCG PO Every morning March 18, 2024 12:00am [employer] capsule Orally Once a day; Note: Source Status: Taking; Provider: Sebastian Hernandez ( ) take 1 capsule by [facility] every twenty-four hours Vitamin D 50 MCG (1999) 1 capsule Orally Once a day Active Citalopram (3 sources) Serotonin Reuptake Inhibitor Start: 01-30-2023 take 30 mg by mouth once daily in the morning Citalopram Active 30 MG PO Every morning January 30, 2023 12:00am Start: 01-30-2023 take 30 mg by mouth once daily Citalopram Active 30 MG PO Daily January 30, 2023 12:00am take 1 tablet by [facility] every twenty-four hours Citalopram Hydrobromide 20 MG 1 tablet Orally Once a day Active dextromethorphan hydrobromide 15 mg / guaiFENesin 400 mg / pseudoephedrine hydrochloride 60 mg oral tablet (1 source) alpha-Adrenergic Agonist, Uncompetitive C-wkpbzq-L-aspartate Receptor Antagonist, Sigma-1 Agonist Start: 07-31-2023 take 4 tablets by mouth every twenty-four hours as needed Capmist DM 60-15-400 MG as needed Orally every 4-6 hours as needed, max 4 tablets in 24 hours for 5 days Jul, Active estradiol 1 mg oral tablet (2 sources) Estrogen Start: 03-18-2024 take 1 tablet by mouth once daily in the morning Estradiol Active 1 MG PO Every morning March 18, 2024 12:00am FreeText[employer] tablet Orally Once a day; Note: Source Status: Taking; Provider: Sebastian Hernandez ( ) take 1 tablet by venkatesh every twenty-four hours Estradiol 1 MG 1 tablet Orally Once a day Active magnesium gluconate 500 mg oral tablet (1 source) Start: 03-18-2024 take 27 mg by mouth once daily in the morning Magnesium Gluconate Active 27 MG PO Every morning March 18, 2024 12:00am medroxyPROGESTERone acetate 2.5 mg oral tablet (2 sources) Progestin Start: 01-30-2023 take 2.5 mg by mouth once daily in the morning Medroxyprogesterone Active 2.5 MG PO Every morning January 30, 2023 12:00am methylPREDNISolone 4 mg oral tablet (1 source) Corticosteroid Start: 07-31-2023 methylPREDNISolone 4 MG as directed Orally for 6 Jul, Active progesterone 100 mg oral capsule (2 sources) Progesterone Start: 03-18-2024 take 1 capsule by mouth once daily in the morning Progesterone Micronized Active 100 MG PO Every morning March 18, 2024 12:00am [employer] capsule at bedtime Orally Once a day; Note: Source Status: Taking; Provider: Sebastian Hernandez ( ) take 1 capsule by mo [facility] every twenty-four hours Progesterone 100 MG 1 capsule at bedtime Orally Once a day Active simethicone 62.5 mg oral film (3 sources) Start: 05-14-2017 take 80 mg by [...] / HYDROcodone bitartrate 5 mg oral tablet (2 sources) Opioid Agonist Start: 0 End: 3 take 1 tablet by mouth every six hours Hydrocodone-Acetaminoph en ([place]) 5-325 mg tablet Discontinued 1 TAB PO [...] Fiber-Caps Not-Taking/PRN hydroCHLOROthiazide 12.5 mg oral capsule (2 sources) Thiazide Diuretic Start: 7 End: 3 take [...] May, Not-Taking/PRN melatonin 3 mg oral tablet (2 sources) Start: 7 End: 3 take 3 mg by mouth at bedtime Melatonin Discontinued 3 MG PO Bedtime May 14, 2017 12:00am January 30, 2023 7:25am ondansetron 4 mg oral tablet (3 sources) Serotonin-3 Receptor Antagonist Start: 7 End: 3 take 1 tablet by mouth three times daily Ondansetron Hcl (Zofran) 4 mg tablet Discontinued 4 MG PO Three times daily May 14, 2017 12:00am January 30, 2023 7:25am take 1 tablet by venkatesh once daily as needed Zofran 4 mg 1 tablets Orally Once a day Not-Taking/PRN pantoprazole 40 mg delayed release oral tablet (4 sources) Proton Pump Inhibitor Start: 05-14-2017 End: 01-30-2023 take 1 tablet by mouth once daily Pantoprazole (Protonix) 40 mg tablet,delayed release (DR/EC) Discontinued 40 MG PO Daily 30 October 03, 2019 1:00am January 30, 2023 7:26am sucralfate 1000 mg oral tablet (2 sources) Aluminum Complex Start: 10-03-2019 End: 01-30-2023 take 1 tablet by mouth at bedtime Sucralfate (Carafate) 1 gram tablet Discontinued 1 GM PO Before meals and at bedtime 60 October 03, 2019 1:00am January 30, 2023 7:26am Problems Active Problems Problem Classification Problem Date Documented Da te Episodic/Chronic Esophageal disorders (3 sources) Gastro-esophageal reflux disease with esophagitis; Translations: [Gastroesophageal reflux disease with esophagitis] 10-03-2019 Chronic Gastritis and duodenitis (1 source) Atrophic gastritis; Translations: [Unspecified chronic gastritis without bleeding] Chronic Nausea and vomiting (1 source) Nausea and vomiting; Translations: [Nausea with vomiting, unspecified] Episodic Nonspecific chest pain (2 sources) Chest pain; Translations: [Chest pain, unspecified] 10-03-2019 Episodic Other female genital disorders (1 source) Abnormal uterine and vaginal bleeding, unspecified; Translations: [Abnormal uterine and vaginal bleeding, unspecified] Onset: 03-18-2024 Chronic Other gastrointestinal disorders (1 source) Constipation; Translations: [...] Name Value Interpretation Reference Range Facil ity Pathology Request for Lab Co rpon 03-18-2024 Pathology Request for Lab David Normal [facility] Comment on above: Order Comment: PATHO LOGY CARGO TRIMMER SPECIMEN Result Comment: See report. Scanned copy available in EMR. PERFORMED BY: [place] [id number] PATHOLOGIST DEBONE PROCESSING SUPERVISOR HORACE BURKS M.D. Performed By: #### P ATH TO [facility] #### [address] COVID + FLU Quick Testingon 07-31-2023 SARS-CoV-2 (COVID-19) RNA MANUEL+probe Ql (Unsp spec) Negative [facility] Other COVID + FLU Quick Testing Negative [facility] Other Basophils Auto (Bld) [#/Vol] Ordered By: Bismark Hayes on 01-30-2023 Basophils (Bld) [#/Vol] 0.0 10*3/uL 0.0-0.2 [facility] Basophils/100 WBC Auto (Bld) Ordered By: Bismark Hayes on 01-30-2023 Basophils/100 WBC (Bld) 0.4 % . [facility] Eosinophils Auto (Bld) [#/Vo l]Ordered By: Bismark Hayes on 01-30-2023 Eosinophils (Bld) [#/Vol] 0.2 10*3/uL 0.0-0.45 [facility] Eosinophils/100 WBC Auto (Bl d)Ordered By: Bismark Hayes on 01-30-2023 Eosinophils/100 WBC (Bld) 3.3 % . [facility] Erythrocyte distribution wid th Auto (RBC) [Ratio]Ordered By: Bismark Hayes on 01-30-2023 Erythrocyte distribution width (RBC) [Ratio] 12.8 % 11.9-15.3 [facility] Hematocrit Auto (Bld) [Volum e fraction]Ordered By: Bismark Hayes on 01-30-2023 Hematocrit (Bld) [Volume fraction] 41.0 % 34.0-46.4 [facility] Hemoglobin [Mass/volume] in BloodOrdered By: Bismark Hayes on 01-30-2023 Hemoglobin (Bld) [Mass/Vol] 13.7 g/dL 11.8-15.4 [facility] Leukocytes [#/volume] correc pam for nucleated erythrocytes in Blood by Automated counOrdered By: Bismark Hayes on 01-30-2023 WBC corrected for nucl RBC Auto (Bld) [#/Vol] 7.6 10*3/uL 3.8-11.6 [facility] Lymphocytes Auto (Bld) [#/Vo l]Ordered By: Bismark Hayes on 01-30-2023 Lymphocytes (Bld) [#/Vol] 2.5 10*3/uL 1.00-4.8 [facility] Lymphocytes/100 WBC Auto (Bl d)Ordered By: Bismark Hayes on 01-30-2023 Lymphocytes/100 WBC (Bld) 32.9 % . [facility] MCH Auto (RBC) [Entitic mass ]Ordered By: Bismark Hayes on 01-30-2023 MCH (RBC) [Entitic mass] 29.5 pg 24.7-34.3 [facility] MCHC Auto (RBC) [Mass/Vol]Or dered By: Bismark Hayes on 01-30-2023 MCHC (RBC) [Mass/Vol] 33.5 g/dL 32.0-35.0 [facility] MCV Auto (RBC) [Entitic vol] Ordered By: Bismark Hayes on 01-30-2023 MCV (RBC) [Entitic vol] 88.0 fL 80-100 [facility] Monocytes Auto (Bld) [#/Vol] Ordered By: Bismark Hayes on 01-30-2023 Monocytes (Bld) [#/Vol] 0.5 10*3/uL 0.0-0.8 [facility] Monocytes/100 WBC Auto (Bld) Ordered By: Bismark Hayes on 01-30-2023 Monocytes/100 WBC (Bld) 6.6 % . [facility] Neutrophils Auto (Bld) [#/Vo l]Ordered By: Bismark Hayes on 01-30-2023 Neutrophils (Bld) [#/Vol] 4.3 10*3/uL 1.8-7.7 [facility] Neutrophils/100 WBC Auto (Bl d)Ordered By: Bismark Hayes on 01-30-2023 Neutrophils/100 WBC (Bld) 56.8 % . [facility] Nucleated erythrocytes [Pres ence] in Blood by Automated countOrdered By: Bismark Hayes on 01-30-2023 Nucleated RBC Auto Ql (Bld) 0.1 /100{WBC} 0-0.5 [facility] Platelet mean volume Auto (B ld) [Entitic vol]Ordered By: Bismark Hayes on 01-30-2023 Platelet mean volume (Bld) [Entitic vol] 8.4 fL 6.3-10.7 [facility] Platelets Auto (Bld) [#/Vol] Ordered By: Bismark Hayes on 01-30-2023 Platelets (Bld) [#/Vol] 310 10*3/uL 150-450 [facility] RBC Auto (Bld) [#/Vol]Ordere d By: Bismark Hayes on 01-30-2023 RBC (Bld) [#/Vol] 4.66 10*6/uL 3.60-5.00 [facility] WBC Auto (Bld) [#/Vol]Ordere d By: Bismark Hayes on 01-30-2023 WBC (Bld) [#/Vol] 7.6 10*3/uL 3.8-11.6 [facility] Covid-19 PCR (CVDTB)on 02-08 SARS-CoV-2 (COVID-19) RNA MANUEL+probe Ql (Unsp spec) Not detected Normal NOT DETECTED [facility] Comment on above: Result Comment: [...] for this test is supported by the Audit Machine Operator of Health and Human Service's declaration that [...] longer be used). Performed By: #### C VDTB #### [facility] [address] [place] [address] Dr. Mary Crump Covid-19 PCR ([facility])on 05-12 SARS-CoV-2 (COVID-19) RNA MANUEL+probe Ql (Unsp spec) Not detected Normal NOT DETECTED [facility] Comment on above: Result Comment: When diagnostic testing is negative, the possibility of a false negative should be considered in the context of a patient's recent exposures and the presence of clinical signs and symptoms consistent with SARS-CoV-2. Performed By: #### C VDTBH #### [facility] [address] [place], [place] [id number] Dr. Mary Crump Vital Signs Date Time Vital Sign Value Performing Clinician Facility 03-18-2024 09:45-0400 Diastolic blood pressure 66 mm[Hg] MD Valerio Cortes Work Phone: [facility] 03-18-2024 09:45-0400 Heart rate 62 /min MD Valerio Cortes Work Phone: [facility] 03-18-2024 09:45-0400 Respiratory rate 16 /min MD Valerio Cortes Work Phone: [facility] 03-18-2024 09:45-0400 SaO2% (BldA) [Mass fraction] 96 % MD Valerio Cortes Work Phone: [facility] 03-18-2024 09:45-0400 Systolic blood pressure 111 mm[Hg] MD Valerio Cortes Work Phone: [facility] 03-18-2024 08:50-0400 Body temperature 98 [degF] MD Valerio Cortes Work Phone: [facility] 03-18-2024 08:25-0400 Inhaled oxygen flow rate 8 L/min MD Valerio Cortes Work Phone: [facility] 03-18-2024 06:36-0400 Body height 157.48 cm MD Valerio Cortes Work Phone: [facility] 03-18-2024 06:36-0400 Body weight 73.02 kg MD Valerio Cortes Work Phone: [facility] 07-31-2023 11:30-0500 Body height 157.48 cm Mary Cortes Other [employer] [facility] Other 07-31-2023 11:30-0500 Body mass index (BMI) [Ratio] 30.54 kg/m2 Mary Cortes Other [employer] Other 07-31-2023 11:30-0500 Body temperature 97.2 [degF] Mary Cortes Other [employer] Other 07-31-2023 11:30-0500 Body weight 75.75 kg Mary Cortes Other [employer] Other 07-31-2023 11:30-0500 Respiratory rate 18 /min Mary Cortes Other [employer] Other 07-31-2023 11:30-0500 SaO2% (BldA) [Mass fraction] 98 % Mary Cortes Other [employer] Other 01-30-2023 10:03-0400 Diastolic blood pressure 75 mm[Hg] MD Valerio Cortes Work Phone: [facility] 01-30-2023 10:03-0400 Heart rate 76 /min MD Valerio Cortes Work Phone: [facility] 01-30-2023 10:03-0400 Respiratory rate 16 /min MD Valerio Cortes Work Phone: [facility] 01-30-2023 10:03-0400 SaO2% (BldA) [Mass fraction] 94 % MD Valerio Cortes Work Phone: [facility] 01-30-2023 10:03-0400 Systolic blood pressure 120 mm[Hg] MD Valerio Cortes Work Phone: [facility] 01-30-2023 09:04-0400 Body temperature 97 [degF] MD Valerio Cortes Work Phone: [facility] 01-30-2023 07:28-0400 Body height 157.48 cm MD Valerio Cortes Work Phone: [facility] 01-30-2023 07:28-0400 Body weight 72.57 kg MD Valerio Cortes Work Phone: [facility] Encounters Encounter Date Encounter Type Care Provider Facility Start: 03-29-2024 End: 03-29-2024 ambulatory BISMARK HAYES Not Available Start: 03-18-2024 End: 03-18-2024 Admission to same day surgery center MD Valerio Cortes Work Phone: [facility] [place] Start: 03-18-2024 End: 03-18-2024 ambulatory MD Valerio Cortes Work Phone: [facility] Work Phone: Start: 03-12-2024 End: 03-12-2024 ambulatory BISMARK HAYES Not Available Start: 07-31-2023 End: 07-31-2023 ambulatory Mary Cortes Other [employer] Other Start: 07-31-2023 Office outpatient ne w 30 minutes Mary Cortes [facility] Start: 01-30-2023 End: 01-30-2023 Admission to same day surgery center MD Valerio Cortes Work Phone: [facility] [place] Start: 01-30-2023 End: 01-30-2023 ambulatory MD Valerio Cortes Work Phone: [facility] Work Phone: Start: 02-19-2022 End: 02-19-2022 ambulatory ANDREA RESTREPO Facility:[facility] Start: 06-06-2021 End: 06-07-2021 ambulatory SAIMA PHAM Facility:[facility] Start: 06-01-2021 End: 06-02-2021 ambulatory SAIMA PHAM Facility:[facility] Start: 05-31-2021 End: 05-31-2021 ambulatory ANDREA RESTREPO Facility:[facility] Procedures Date Procedure Procedure Detail Performing Clinician Start: 03-18-2024 Hysteroscopy with endometrial ablation MD Valerio Cortes Work Phone: Start: 01-30-2023 Hysteroscopy with endometrial ablation MD Valerio Cortes Work Phone: Plan of Treatment Date Care Activity Detail Author Start: 03-18-2024 End: 03-18-2024 [facility] Start: 01-30-2023 [facility] Patient Education Know your Meds [facility] Work Phone: Patient referral [facility] Work Phone: Payers Date Payer Category Payer Self-pay [id number] 2023 [employer] [id number] 1966 Unknown [id number] 2.16.84 [id number] 1966 Unknown [id number] 2.16.84 [id number] 1966 Unknown [id number] 2.16.84 [id number] 1966 Unknown [id number] 2.16.84 [id number] 1959 Self-pay [id number] 1959 Unknown [id number] Unknown [id number] 2.16.84 [id number] Unknown [id number] 2.16.84 [id number] Unknown [id number] [id number] Social History Date Type Detail Facility Start: 01-30-2023 End: 03-18-2024 Tobacco smoking status NHIS Never smoked tobacco (finding) [facility] Start: 1965 Sex Assigned At Female F [facility] Sex Assigned At Sex Assigned At Bir th [employer] Other Goals Date Patient Goal Desired Activity [...] treatment plan. Patient left in stable condition [employer] Other History general Narrative - Reported 04-11-2008 Note Date & Type Note Facility 04-11-2008 History general N arrative - Reported Type Medical History irrregular heartbeat Medical History GERD Medical History Acute bronchitis Surgical History gallbladder removed 2002 Surgical History D&C x2 04/2008 Hospitalization History see above [employer] Other Evaluation note Note Date & Type Note Facility Evaluation note No assessment information ponce ov[place] [facility] Work Phone: Hospital Discharge instructions Note Date [...] in an emergency, call the office at [[phone]]. TODAY -Take it easy the rest of [...] FOLLOW UP -Please call the office at [phone] to arrange an appointment to see me in 2 weeks [ ] [facility] Work Phone: Summary Purpose Family History No Family History Records Found Relationship Condition Age at Onset Recorded Date/T raya mother Malignant neoplasm of uterus Unknown Hypothyroidism Unknown Disorder of lung Unknown father Alive and well Unknown brother Small cell carcinoma of lung Unknown Advance Directives No Advanced Directives Records Found Advance Directive Response Recorded Date/ Time Advance Directives No May 13, 2017 9:06am Chief Complaint and Reason for Visit Chief Complaint Post Menopausal Blee ding Chief Complaint Abnormal Uterine Ble eding, Hx of Polyps Additional Source Comments INFORMATION SOURCE (unrecogn ized section and content) DATE CREATED AUTHOR 02/27/2022 [facility] DATE CREATED AUTHOR AUTHOR'S ORGANIZ ATION 03/30/2024 [facility] EPIC DATE CREATED AUTHOR AUTHOR'S ORGANIZ ATION 04/28/2024 [facility] Care Teams (unrecognized sec tion and content) Team Status: Active Member Role Status Dates Valerio Cortes MD Primary Care Provider Active Team Status: Inactive Member Role Status Dates Valerio Cortes MD Primary Care Provider Active Bismark Hayes DO Attending Provider Active Team Status: Inactive Member Role Status Dates Valerio Cortes MD Primary Care Provider Active Start: March 18, 2024 End: March 18, 2024 Bismark Hayes DO Attending Provider Active Start: March 18, 2024 End: March 18, 2024 REASON FOR VISIT (unrecogniz ed section and [...] BE BASED ON THE PRIMARY CLINICAL RECORDS. [facility]. provides no warranty or guarantee of the accuracy or completeness of information in this document.
== END 2024-05-21 14:03 | disposition home or self-care (01) ==
LOC: PST 14:02
PROVIDERS: PCP Family Medicine; Visit Provider Surgery
DX: Z01.818 Encounter for other preprocedural examination (principal); Z12.11 Encounter for screening for malignant neoplasm of colon; K21.9 Gastro-esophageal reflux disease without esophagitis

== ENCOUNTER 2024-05-26 07:57 | Day surgery (SDC) | payer BC, SELFPAY ==
--- OUTSIDE RECORDS SUMMARY | 2024-05-26 08:00 | XMS_ITS | CCD ---
Author Organization [facility] Care Team Providers Care Risk Engineer Name Role Phone LAURO ANDREA Attending Unavailable LAURO, ANDREA Consulting Unavailable LAURO, ANDREA Admitting Unavailable ROSS, SAIMA KAREN Consulting Unavailable ROSS, SAIMA KAREN Admitting Unavailable ROSS, SAIMA KAREN Attending Unavailable ROSS, SAIMA KAREN Consulting Unavailable ROSS, SAIMA KAREN Admitting Unavailable ROSS, SAIMA KAREN Attending Unavailable LAURO, ANDREA Admitting Unavailable LAURO, ANDREA Attending Unavailable LAURO, ANDREA Consulting Unavailable MD Valerio Cortes Primary Care Provider [phone] DO Bismark Hayes Attending Provider [phone] Mary Cortes Unavailable MD Valerio Cortes Primary Care Provider DO Bismark Hayes Attending Provider BISMARK HAYES Attending Unavailable BISMARK HAYES Attending Unavailable BISMARK HAYES Referring Unavailable Valerio Cortes Primary Care Unavailable Bismark Hayes Attending Unavailable Bismark Hayes Admitting Unavailable BRAD GRANADOS Attending Unavailable VALERIO CORTES Referring Unavailable VALERIO CORTES Primary Care Unavailable Valerio Cortes MD Primary Care Provider Allergies Allergy Classification Reported Allergen(s) Allergy Type Date of Onset Reaction(s) Facility (4 sources) Codeine; Translations: [CODEINE] Drug Allergy 7 Rash, Rash, ([facility]) 06/17/2011 [facility] (2 sources) Ibuprofen Drug Allergy 1 ([place]) 06/17/2011 [facility] (5 sources) Ibuprofen; Translations: [ibuprofen] Drug Allergy 7 irregular heart rate, irregular heart rate, ([place]) 06/17/2011 [facility] (2 sources) Codeine Drug Allergy 7 [facility] (1 source) Codeine Drug Allergy 4 [facility] Repository Medications Current Medications Medication Drug Class(es) Dates Sig (Normalized) Sig (Original) aluminum hydroxide 80 mg / magnesium trisilicate 14.2 mg chewable tablet (2 sources) Start: 05-14-2017 take 1 tablet by mouth once daily Al Hyd-Mg Tr-Alg Ac-Sod Bicarb (Gaviscon) 80-14.2 mg Tablet,Chewable Active 1 TAB PO Daily May 14, 2017 12:00am cholecalciferol 0.05 mg oral capsule (3 sources) Vitamin D Start: 03-18-2024 take 1 capsule by mouth once daily in the morning Cholecalciferol (Vitamin D3) Active 120 MCG PO Every morning March 18, 2024 12:00am FreeTextSi capsule Orally Once a day; Note: Source Status: Taking; Provider: Sebastian Hernandez ( ) cholecalciferol, vitamin D3, (VITAMIN D3) 500 units tablet Take 10 split tablet (5,000 Units total) by mouth in the morning. Active take 1 capsule by mo uth every twenty-four hours Vitamin D 50 MCG (1999 UT) 1 capsule Ora lly Once a day Active Citalopram (4 sources) Serotonin Reuptake Inhibitor Start: 01-30-2023 take 30 mg by mouth once daily in the morning Citalopram Active 30 MG PO Every morning January 30, 2023 12:00am Start: 01-30-2023 take 30 mg by mouth once daily Citalopram Active 30 MG PO Daily January 30, 2023 12:00am take 1 tablet by venkatesh th in the morning citalopram (CeleXA) 20 mg tablet Take 1 tablet (20 mg total) by mouth in the morning. Active cod liver oiL oil (1 source) take 2 capsules by mouth in the evening cod liver oiL oil Take 2 capsules by mouth in the evening. Active dextromethorphan hydrobromide 15 mg / guaiFENesin 400 mg / pseudoephedrine hydrochloride 60 mg oral tablet (1 source) alpha-Adrenergic Agonist, Uncompetitive L-cruygz-P-aspartate Receptor Antagonist, Sigma-1 Agonist Start: 07-31-20 take 4 tablets by mouth every twenty-four hours as needed Capmist DM 60-15-400 MG as needed Orally every 4-6 hours as needed, max 4 tablets in 24 hours for 5 days Jul, Active estradiol 1 mg oral tablet (3 sources) Estrogen Start: 02-24-20 take 1 tablet by mouth once daily in the morning Estradiol Active 1 MG PO Every morning March 18, 2024 12:00am FreeTextSi tablet Orally Once a day; Note: Source Status: Taking; Provider: Sebastian Hernandez ( ) take 1 tablet by venkatesh th every twenty-four hours Estradiol 1 MG 1 tablet Orally Once a day Active magnesium gluconate 500 mg oral tablet (1 source) Start: 03-18-2024 take 27 mg by mouth once daily in the morning Magnesium Gluconate Active 27 MG PO Every morning March 18, 2024 12:00am Magnesium glycinate (1 source) take 200 mg by mouth in the morning MAGNESIUM GLYCINATE ORAL Take 200 mg by mouth in the morning. Active medroxyPROGESTERone acetate 2.5 mg oral tablet (3 sources) Progestin Start: 01-30-2023 take 1 tablet by mouth in the morning medroxyPROGESTERone (PROVERA) 2.5 mg tablet Take 1 tablet (2.5 mg total) by mouth in the morning. 12/19/2023 Active methylPREDNISolone 4 mg oral tablet (1 source) Corticosteroid Start: 07-31-2023 methylPREDNISolone 4 MG as directed Orally for 6 Jul, Active ritkasiy-inr-JZ-lycopen -lutein (COMPLETE MV ADULT 50 PLUS) 0.4 mg-300 mcg- 250 mcg tablet (1 source) take 1 tablet by mouth once in the morning opobqked-ves-BE-lycope n-lutein (COMPLETE MV ADULT 50 PLUS) 0.4 mg-300 mcg- 250 mcg tablet Take 1 tablet by mouth in the morning. Active progesterone 100 mg oral capsule (2 sources) Progesterone Start: 03-18-2024 take 1 capsule by mouth once daily in the morning Progesterone Micronized Active 100 MG PO Every morning March 18, 2024 12:00am FreeTextSi capsule at bedtime Orally Once a day; Note: Source Status: Taking; Provider: Sebastian Hernandez ( ) take 1 capsule by mo [facility] every twenty-four hours Progesterone 100 MG 1 capsule at bedtime Orally Once a day Active simethicone 62.5 mg oral film (3 sources) Start: 05-14-2017 take 80 mg by mouth before mealtime Simethicone (Gas-X) 62.5 mg Strip Active 80 MG PO Before meals May 14, 2017 12:00am Start: 05-01-2017 take 1 tablet by venkatesh four times daily at bedtime as needed Gas-X 80 MG 1 tablet after meals and at bedtime as needed Orally Four times a day Apr, Not-Taking/PRN sod sulf-pot chloride-mag vaughn lf 1.479-0.188- 0.225 gram tablet (1 source) Start: 05-19-2024 sod sulf-pot c hloride-mag sulf 1.479-0.188- 0.225 gram tablet Indications: Encounter for screening colonoscopy Please see instructional sheet given by physicians office. 24 tablet 05/19/2024 Active Completed/Discontinued Medications Medication Drug Class(es) Dates Sig (Normalized) Sig (Original) acetaminophen 325 mg / HYDROcodone bitartrate 5 mg oral tablet (2 sources) Opioid Agonist Start: 0 End: 3 take 1 tablet by mouth every six hours Hydrocodone-Acetaminoph en ([place]) 5-325 mg tablet Discontinued 1 TAB PO [...] 3 mg oral tablet (2 sources) Start: End: 3 take 3 mg by mouth at bedtime Melatonin Discontinued 3 MG PO Bedtime May 14, 2017 12:00am January 30, 2023 7:25am ondansetron 4 mg oral tablet (3 sources) Serotonin-3 Receptor Antagonist Start: End: 3 [...] Date Documented Da te Episodic/Chronic Esophageal disorders (5 sources) Gastro-esophageal reflux disease with esophagitis; Translations: [Gastroesophageal reflux disease with esophagitis] Onset: 05-19-2024 10-03-2019 Chronic Gastritis and duodenitis (1 source) [...] the digestive system and abdomen] Episodic Other gastrointestinal disorders (1 source) Heartburn Onset: 05-19-2024 Episodic Other screening for suspected conditions (not mental disorders or infectious disease) (2 sources) Encounter for screening for malignant neoplasm of colon; Translations: [Patient encounter status] Onset: 05-19-2024 05-19-2024 Episodic Other upper respiratory infections (1 source) [...] Pathology Request for Lab David Normal [facility] Comment on above: Order Comment: PATHO LOGY PARER SPECIMEN Result Comment: See report. Scanned copy available in EMR. PERFORMED BY: [facility] [address] PATHOLOGIST MOSHGIACH HORACE BURKS M.D. Performed By: #### P ATH TO [facility] #### [place] [id number] [facility] COVID + FLU Quick Testingon 07-31-2023 SARS-CoV-2 (COVID-19) RNA MANUEL+probe Ql (Unsp spec) Negative [facility] Other COVID + FLU Quick Testing Negative [place] Other Basophils Auto (Bld) [#/Vol] Ordered By: Bismark Hayes on 01-30-2023 Basophils (Bld) [#/Vol] 0.0 10*3/uL 0.0-0.2 [place] Basophils/100 WBC Auto (Bld) Ordered By: Bismark Hayes on 01-30-2023 Basophils/100 WBC (Bld) 0.4 % . [place] Eosinophils Auto (Bld) [#/Vo l]Ordered By: Bismark Hayes on 01-30-2023 Eosinophils (Bld) [#/Vol] 0.2 10*3/uL 0.0-0.45 [place] Eosinophils/100 WBC Auto (Bl d)Ordered By: Bismark Hayes on 01-30-2023 Eosinophils/100 WBC (Bld) 3.3 % . [place] Erythrocyte distribution wid th Auto (RBC) [Ratio]Ordered By: Bismark Hayes on 01-30-2023 Erythrocyte distribution width (RBC) [Ratio] 12.8 % 11.9-15.3 [place] Hematocrit Auto (Bld) [Volum e fraction]Ordered By: Bismark Hayes on 01-30-2023 Hematocrit (Bld) [Volume fraction] 41.0 % 34.0-46.4 [facility] Hemoglobin [Mass/volume] in BloodOrdered By: Bismark Hayes on 01-30-2023 Hemoglobin (Bld) [Mass/Vol] 13.7 g/dL 11.8-15.4 [place] Leukocytes [#/volume] correc pam for nucleated erythrocytes in Blood by Automated counOrdered By: Bismark Hayes on 01-30-2023 WBC corrected for nucl RBC Auto (Bld) [#/Vol] 7.6 10*3/uL 3.8-11.6 [place] Lymphocytes Auto (Bld) [#/Vo l]Ordered By: Bismark Hayes on 01-30-2023 Lymphocytes (Bld) [#/Vol] 2.5 10*3/uL 1.00-4.8 [place] Lymphocytes/100 WBC Auto (Bl d)Ordered By: Bismark Hayes on 01-30-2023 Lymphocytes/100 WBC (Bld) 32.9 % . [place] MCH Auto (RBC) [Entitic mass ]Ordered By: Bismark Hayes on 01-30-2023 MCH (RBC) [Entitic mass] 29.5 pg 24.7-34.3 [place] MCHC Auto (RBC) [Mass/Vol]Or dered By: Bismark Hayes on 01-30-2023 MCHC (RBC) [Mass/Vol] 33.5 g/dL 32.0-35.0 [place] MCV Auto (RBC) [Entitic vol] Ordered By: Bismark Hayes on 01-30-2023 MCV (RBC) [Entitic vol] 88.0 fL 80-100 [place] Monocytes Auto (Bld) [#/Vol] Ordered By: Bismark Hayes on 01-30-2023 Monocytes (Bld) [#/Vol] 0.5 10*3/uL 0.0-0.8 [place] Monocytes/100 WBC Auto (Bld) Ordered By: Bismark Hayes on 01-30-2023 Monocytes/100 WBC (Bld) 6.6 % . [place] Neutrophils Auto (Bld) [#/Vo l]Ordered By: Bismark Hayes on 01-30-2023 Neutrophils (Bld) [#/Vol] 4.3 10*3/uL 1.8-7.7 [place] Neutrophils/100 WBC Auto (Bl d)Ordered By: Bismark Hayes on 01-30-2023 Neutrophils/100 WBC (Bld) 56.8 % . [place] Nucleated erythrocytes [Pres ence] in Blood by Automated countOrdered By: Bismark Hayes on 01-30-2023 Nucleated RBC Auto Ql (Bld) 0.1 /100{WBC} 0-0.5 [place] Platelet mean volume Auto (B ld) [Entitic vol]Ordered By: Bismark Hayes on 01-30-2023 Platelet mean volume (Bld) [Entitic vol] 8.4 fL 6.3-10.7 [place] Platelets Auto (Bld) [#/Vol] Ordered By: Bismark Hayes on 01-30-2023 Platelets (Bld) [#/Vol] 310 10*3/uL 150-450 [place] RBC Auto (Bld) [#/Vol]Ordere d By: Bismark Hayes on 01-30-2023 RBC (Bld) [#/Vol] 4.66 10*6/uL 3.60-5.00 [facility] WBC Auto (Bld) [#/Vol]Ordere d By: Bismark Hayes on 01-30-2023 WBC (Bld) [#/Vol] 7.6 10*3/uL 3.8-11.6 [facility] Covid-19 PCR (CVDTB)on 02-08 SARS-CoV-2 (COVID-19) RNA MANUEL+probe Ql (Unsp spec) Not detected Normal NOT DETECTED [facility] Comment on above: Result Comment: When diagnostic [...] for this test is supported by the Police Specialist of Health and Human Service's declaration that [...] used). Performed By: #### C VDTBH #### [facility] [address], [place] [address] Dr. Mary Crump Covid-19 PCR ([facility])on 05-12 SARS-CoV-2 (COVID-19) RNA MANUEL+probe Ql (Unsp spec) Not detected Normal NOT DETECTED [facility] Comment on above: Result Comment: When diagnostic testing is negative, the possibility of a false negative should be considered in the context of a patient's recent exposures and the presence of clinical signs and symptoms consistent with SARS-CoV-2. Performed By: #### C VDTB #### [facility] [address], [place] [address] Dr. Mary Crump Vital Signs Date Time Vital Sign Value Performing Clinician Facility 05-19-2024 12:54-0400 Body height 157.5 cm Brad Granados APRN-[employer]ACK [employer]OPER Work Phone: [facility] 05-19-2024 12:54-0400 Body mass index (BMI) [Ratio] 30.62 kg/m2 Bradbere Granados GERIATRIC SOCIAL WORK PROFESSOR-[employer] Work Phone: [facility] 05-19-2024 12:54-0400 Body weight 75.93 kg Brad Granados GERIATRIC SOCIAL WORK PROFESSOR-[employer] Work Phone: [facility] 05-19-2024 12:54-0400 Diastolic blood pressure 94 mm[Hg] Brad Granados GERIATRIC SOCIAL WORK PROFESSOR-[employer] Work Phone: [facility] 05-19-2024 12:54-0400 Heart rate 76 /min Bradbere Granados GERIATRIC SOCIAL WORK PROFESSOR-[employer] Work Phone: [facility] 05-19-2024 12:54-0400 Systolic blood pressure 127 mm[Hg] Brad Granados GERIATRIC SOCIAL WORK PROFESSOR-[employer] Work Phone: [facility] 03-18-2024 09:45-0400 Diastolic blood pressure 66 mm[Hg] MD Valerio Cortes Work Phone: [facility] 03-18-2024 09:45-0400 Heart rate 62 /min MD Valerio Cortes Work Phone: [facility] 03-18-2024 09:45-0400 Respiratory rate 16 /min MD Valerio Cortes Work Phone: [facility] 03-18-2024 09:45-0400 SaO2% (BldA) [Mass fraction] 96 % MD Valerio Cortes Work Phone: [facility] 03-18-2024 09:45-0400 Systolic blood pressure 111 mm[Hg] MD Valerio Cortes Work Phone: [facility] 03-18-2024 08:50-0400 Body temperature 98 [degF] MD Valerio Cortes Work Phone: [facility] 03-18-2024 08:25-0400 Inhaled oxygen flow rate 8 L/min MD Valerio Cortes Work Phone: [facility] 03-18-2024 06:36-0400 Body height 157.48 cm MD Valerio Cortes Work Phone: [facility] 03-18-2024 06:36-0400 Body weight 73.02 kg MD Valerio Cortes Work Phone: [facility] 07-31-2023 11:30-0500 Body height 157.48 cm Mary Cortes Other [facility] Other 07-31-2023 11:30-0500 Body mass index (BMI) [Ratio] 30.54 kg/m2 Mary Cortes Other [facility] Other 07-31-2023 11:30-0500 Body temperature 97.2 [degF] Mary Cortes Other [facility] Other 07-31-2023 11:30-0500 Body weight 75.75 kg Mary Cortes Other [facility] Other 07-31-2023 11:30-0500 Respiratory rate 18 /min Mary Cortes Other [facility] Other 07-31-2023 11:30-0500 SaO2% (BldA) [Mass fraction] 98 % Mary Sebastian Other [facility] Other 01-30-2023 10:03-0400 Diastolic blood pressure 75 mm[Hg] MD Valerio Cortes Work Phone: [facility] 01-30-2023 10:03-0400 Heart rate 76 /min MD Valerio Cortes Work Phone: [facility] 01-30-2023 10:03-0400 Respiratory rate 16 /min MD Valerio oCrtes Work Phone: [facility] 01-30-2023 10:03-0400 SaO2% (BldA) [Mass fraction] 94 % MD Valerio Cortes Work Phone: [facility] 01-30-2023 10:03-0400 Systolic blood pressure 120 mm[Hg] MD Valerio Cortes Work Phone: [facility] 01-30-2023 09:04-0400 Body temperature 97 [degF] MD Valerio Cortes Work Phone: [facility] 01-30-2023 07:28-0400 Body height 157.48 cm MD Valerio Cortes Work Phone: [facility] 01-30-2023 07:28-0400 Body weight 72.57 kg MD Valerio Cortes Work Phone: [facility] Encounters Encounter Date Encounter Type Care Provider Facility Start: 05-19-2024 End: 05-19-2024 Office outpatient new 30 minutes Brad Granados GERIATRIC SOCIAL WORK PROFESSOR-[employer]ACK [employer]OPER Work Phone: [facility] Comment on above: Gastroesophageal ref lux disease, unspecified whether esophagitis present (Primary Dx); Encounter for screening colonoscopy Start: 05-19-2024 End: 05-19-2024 ambulatory [facility] Start: 03-29-2024 End: 03-29-2024 ambulatory BISMARK HAYES Not Available Start: 03-18-2024 End: 03-18-2024 Admission to same day surgery center MD [facility] Start: 03-18-2024 End: 03-18-2024 ambulatory MD Valerio Cortes Work Phone: [facility] Work Phone: Start: 03-12-2024 End: 03-12-2024 ambulatory BISMARK HAYES Not Available Start: 07-31-2023 End: 07-31-2023 ambulatory Mary Cortes Other [facility] Other Start: 07-31-2023 Office outpatient ne w 30 minutes Mary Cortes [facility] Start: 01-30-2023 End: 01-30-2023 Admission to same day surgery center MD [facility]erio Cortes [facility] Start: 01-30-2023 End: 01-30-2023 ambulatory MD Valerio Cortes Work Phone: [facility] Work Phone: Start: 02-19-2022 End: 02-19-2022 ambulatory [...] Treatment Date Care Activity Detail Author Start: 05-19-2025 Adult BMI Screening Adult BMI Screen ing [facility] Start: 05-19-2025 Tobacco Screening Tobacco Screening [facility] Start: 04-11-2024 COVID-19 Vaccine ( season) COVID-19 Vaccine ( season) [facility] Start: 04-11-2024 Influenza vaccination Influenza Vacc ine [facility] Start: 03-18-2024 End: 03-18-2024 [facility] Start: 01-30-2023 [facility] Start: 2016 Administration of varicella zoster vaccine Zoster (Shingles) Vaccine (1 of 2) [facility] Start: 1987 Screening for malign ant neoplasm of cervix Pap Smear [facility] Start: 1985 DTaP,Tdap and Td Vaccines (1 - Tdap) DTaP,Tdap and Td Vaccines (1 - Tdap) [facility] Start: 1984 Adult BMI Follow Up Plan Adult BMI F ollow Up Plan [facility] Start: 1978 Depression Screening Depression Scre ening [facility] End: 05-19-2025 EGD / Colonoscopy EGD / Colonoscopy GI Routine Gastroesophageal reflux disease, unspecified whether esophagitis present Encounter for screening colonoscopy 1 Occurrences starting 05/19/2024 until 05/19/2025 [facility] Work Phone: Comment on above: 1 Occurrences starti ng 05/19/2024 until 05/19/2025 Patient Education Know your Meds [facility] Work Phone: Patient referral [facility] Work Phone: Immunizations Immunization Date Immunization Notes Care Provider Carmen nielsen 03-06-2022 influenza virus vaccine, unspecified formulation Brad Granados APRN-MIKKI Work Phone: [facility] Payers Date Payer Category Payer Self-pay [id number] 2023 Unknown ELISHA CUI SS (PPO) [id number] 2023-Present [phone] [address] [place] [address] [id number] 2023 [employer] Blue Shield [id number] 1966 Unknown [id number] 3 1966 Unknown [id number] 3 1966 Unknown [id number] 1966 Unknown [id number] 59 1966 Unknown [id number] 1959 Self-pay [id number] 1959 Unknown [id number] Unknown [id number] 3 Unknown [id number] 3 Unknown [id number] 1 Social History Date Type Detail Facility Start: 01-30-2023 End: 05-19-2024 Tobacco smoking status MSIS Never smoked tobacco (finding) [facility] Start: 1965 Sex Assigned At Female F [facility] Start: 05-19-2024 Sex Assigned At N [facility] [employer] Other Start: 05-19-2024 Tobacco use and exposure Smokeless tobacco non-user [facility] Start: 05-19-2024 Alcoholic beverage intake Lifetime non-drinker (finding) [facility] Start: 05-19-2024 History of Social function [facility] Start: 1965 Sex assigned at Not on file P [employer] [facility] Goals Date Patient Goal Desired Activity /State History of Present illness Narrative 05-19-2024 Brad Granados, GERIATRIC SOCIAL WORK PROFESSOR-[employer] - 05/19/2024 1:00 PM EDT Note Date & Type Note Facility 05-19-2024 History of Present illness Narrative Images from the original note were not included. Chief Complaint: GERD History of Present Illness Deb Scott is a 59 y.o. female who presents to the office for GERD. She has had symptoms on and off since her second 30 years ago. She has taken Protonix and Tums intermittently throughout the years. She will wake up in the morning and go to bed sometimes with heartburn and acid reflux. Associated symptoms include nausea. She denies any abdominal pain or vomiting. Recently she has noticed pills getting stuck in the back of her throat. She drinks 2 cups of tea daily. She does not smoke. She also would like to schedule colonoscopy. She can not remember the last time she had one. She denies any rectal bleeding, diarrhea, constipation. She has a family history of colon cancer in her grandmother and cousin. 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 Review of Systems Constitutional: Negative for fever and unexpected weight change. HENT: Positive for trouble swallowing. Respiratory: Negative for shortness of breath. Cardiovascular: Negative for chest pain. Gastrointestinal: Positive for nausea. Negative for vomiting, abdominal pain, diarrhea, constipation, blood in stool and black tarry stool. GERD Genitourinary: Negative for dysuria and difficulty urinating. Musculoskeletal: Negative for gait problem. Skin: Negative for rash and wound. Neurological: Negative for dizziness, weakness and light-headedness. Hematological: Does not bruise/bleed easily. Psychiatric/Behavioral: Negative for confusion. Past Medical History: Diagnosis Date Anxiety Heartburn Past Surgical History: Procedure Laterality Date CHOLECYSTECTOMY 2002 [facility] [address] VERA [facility] ESOPHAGOGASTRODUODENOSCOPY UNSURE OF DATE HYSTEROSCOPY 03/2024 OTHER SURGICAL HISTORY DILITATION & CURETTAGE OTHER SURGICAL HISTORY 03/2024 UTERINE ABLATION Allergies Allergen Reactions Ibuprofen Other Reaction(s): Unknown Irregualr heart rate Codeine Rash Other Reaction(s): Unknown Current Outpatient Medications: cholecalciferol, vitamin D3, (VITAMIN D3) 500 units tablet, Take 10 split tablet (5,000 Units total) by mouth in the morning., Disp: , Rfl: citalopram (CeleXA) 20 mg tablet, Take 1 tablet (20 mg total) by mouth in the morning., Disp: , Rfl: cod liver oiL oil, Take 2 capsules by mouth in the evening., Disp: , Rfl: estradioL (ESTRACE) 1 mg tablet, Take 1 tablet (1 mg total) by mouth., Disp: , Rfl: MAGNESIUM GLYCINATE ORAL, Take 200 mg by mouth in the morning., Disp: , Rfl: medroxyPROGESTERone (PROVERA) 2.5 mg tablet, Take 1 tablet (2.5 mg total) by mouth in the morning., Disp: , Rfl: lvunvizg-chq-BG-lycopen-lutein (COMPLETE MV ADULT 50 PLUS) 0.4 mg-300 mcg- 250 mcg tablet, Take 1 tablet by mouth in the morning., Disp: , Rfl: sod sulf-pot chloride-mag sulf 1.479-0.188- 0.225 gram tablet, Please see instructional sheet given by physicians office., Disp: 24 tablet, Rfl: 0 Social History Socioeconomic History Marital status: Spouse name: Not on file Number of children: Not on file Years of education: Not on file Highest education level: Not on file Occupational History Not on file Tobacco Use Smoking status: Never Smokeless tobacco: Never Vaping Use Vaping status: Never Used Substance and Sexual Activity Alcohol use: Never Drug use: Never Sexual activity: Yes Partners: Male Other Topics Concern Not on file Social History Narrative Not on file Social Determinants of Health Financial Resource Strain: Not on file Food Insecurity: Not on file Transportation Needs: Not on file Physical Activity: Not on file Stress: Not on file Social Connections: Not on file Interpersonal Safety: Not on file Housing Instability: Not on file Family History Problem Relation Age of Onset Hearing loss Mother Uterine cancer Mother Hypothyroidism Mother Lung disease Mother Lung cancer Brother Multiple sclerosis Maternal Aunt Uterine cancer Maternal Aunt Lung disease Maternal Aunt Lung disease Maternal Aunt Uterine cancer Maternal Aunt Lung cancer Maternal Uncle Cancer Maternal Grandmother Colon cancer Maternal Grandmother 52 Uterine cancer Maternal Grandmother Colon cancer Cousin Objective Physical Exam Constitutional: General: She is not in acute distress. Appearance: Normal appearance. She is not ill-appearing. HENT: Head: Normocephalic and atraumatic. Mouth/Throat: Mouth: Mucous membranes are moist. Eyes: Pupils: Pupils are equal, round, and reactive to light. Cardiovascular: Rate and Rhythm: Normal rate and regular rhythm. Pulmonary: Effort: Pulmonary effort is normal. No respiratory distress. Abdominal: General: There is no distension. Musculoskeletal: General: Normal range of motion. Skin: General: Skin is warm and dry. Neurological: Mental Status: She is alert and oriented to person, place, and time. Mental status is at baseline. Vital Signs: Blood pressure (!) 127/94, pulse 76, height 157.5 cm (5' 2 ), weight 75.9 kg (167 lb 6.4 oz). Respiratory Source: No data recorded Admission Weight: Weight: 75.9 kg (167 lb 6.4 oz) Labs No results found for: WBC , HGB , HCT , MCV , PLT No results found for: GLU , CALCIUM , NA , K , CO2 , CL , BUN , CREATININE No results found for: AMYLASE No results found for: LIPASE No results found for: ALT , AST , GGT , ALKPHOS , LABBILI No results found for: INR , PROTIME Assessment Chronic GERD, now feeling like pills are getting caught in throat rule out Barretts esophagus Screening colonoscopy Family history of colon cancer in 2 second-degree relatives Plan EGD and colonoscopy with possible biopsy and/or polypectomy. Risks, benefits, and alternatives discussed with patient. Educated on bowel evacuation preparation. Patient verbalizes understanding and wishes to proceed. 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 While intending to generate a timely document that accurately reflects the content of the visit, no guarantee can be provided that every grammatical or spelling mistake has been or will be identified or corrected. Thank you for your understanding. AYANNA Ho 05/19/24 1335 documented in this encounter [facility] Evaluation note 07-31-2023 Note Date & Type [...] treatment plan. Patient left in stable condition NSC Other History general Narrative - Reported 04-11-2008 Note Date & Type Note Facility 04-11-2008 History general N arrative - Reported Type Medical History irrregular heartbeat Medical History GERD Medical History Acute bronchitis Surgical History gallbladder removed 2002 Surgical History D&C x2 04/2008 Hospitalization History see above NSC Other Evaluation note Note Date & Type Note Facility Evaluation note No assessment information [facility] Work Phone: Evaluation note Note Date & Type Note Facility Evaluation note Diagnosis Gastroesophageal reflux disease, unspecified whether esophagitis present- Primary Encounter for screening colonoscopy documented in this encounter [facility] Discharge instructions Note Date & Type [...] in an emergency, call the office at [[phone]]. TODAY -Take it easy the rest of [...] FOLLOW UP -Please call the office at [phone] to arrange an appointment to see me in 2 weeks [ ] [facility] Work Phone: Instructions Note Date & Type Note Facility Instructions Not on filedocumented in this en counter [facility] Summary Purpose Family History Relationship Condition Age at Onset Recorded Date/T raya mother Malignant neoplasm of uterus Unknown Hypothyroidism Unknown Disorder of lung Unknown father Alive and well Unknown brother Small cell carcinoma of lung Unknown Advance Directives Advance Directive Response Recorded Date/ Time Advance Directives No May 13, 2017 9:06am Chief Complaint and Reason for Visit Chief Complaint Post Menopausal Blee ding Chief Complaint Abnormal Uterine Ble eding, Hx of Polyps Additional Source Comments INFORMATION SOURCE (unrecogn ized section and content) DATE CREATED AUTHOR 02/27/2022 [facility] DATE CREATED AUTHOR AUTHOR'S ORGANIZ ATION 03/30/2024 [facility] EPIC DATE CREATED AUTHOR AUTHOR'S ORGANIZ ATION 04/28/2024 [facility] DATE CREATED AUTHOR AUTHOR'S ORGANIZ ATION 05/21/2024 [facility] Care Teams (unrecognized sec tion and content) [...] 18, 2024 End: March 18, 2024 Bismark Haeys DO Attending Provider Active Start: March 18, 2024 End: March 18, 2024 Risk Engineer Relationship Specialty Start Date End Date Valerio Cortes MD [address] [place], [place] [id number] PCP - General Family Medicine 05/11/24 REASON FOR VISIT (unrecogniz ed section and content) Reason Comments Heartburn GERD, occasional dis comfort. Some dysphagia during morning hours. REFERRED BY DR CORTES FOR RECORDS PERTAINING TO PATIENTS WHO ARE [...] BE BASED ON THE PRIMARY CLINICAL RECORDS. [facility]. provides no warranty or guarantee of the accuracy or completeness of information in this document.
[2024-05-26 08:10] VITALS: BP 141/67; PULSE 85; TEMP 36.3; O2SAT 97; BMI 30.1
--- NOTE | 2024-05-26 08:13 | PM.GSPRC ---
Date of procedure: 05/26/24 Indications for Procedure: GERD, screening for cancer Pre-op diagnosis: GERD; screening for cancer Post-op diagnosis: other (Rule out esophagitis; normal colon stomach and duodenum) Procedure: Colonoscopy EGD with biopsy antrum and distal esophagus Findings: Bile gastritis; rule out esophagitis otherwise normal Anesthesia: MAC Surgeon: Ruiz Glover Procedure Summary: PROCEDURE: The patient was taken to the Endoscopy Suite, placed in the left lateral recumbent position, given IV sedation as above. The Olympus EGD scope was advanced under direct visualization into the posterior pharynx esophagus into the stomach through the pylorus into the first second third and fourth portions of the duodenum which were completely normal. There were no polyps tumors ulcers noted. The scope was returned to the stomach and there was some mild bile gastritis in the upper portion of the stomach. Biopsies were taken hemostasis maintained no ulcers tumors or polyps were seen. There was bile on entrance into the stomach. The scope was withdrawn to the distal esophagus where there might have been mild esophagitis and biopsies were taken and hemostasis maintained. The rest of the esophagus was completely normal. A rectal digital exam was performed. The sphincter tone was found to be normal. No rectal masses were appreciated. The Olympus video colonoscope was advanced under direct visualization to the rectum, sigmoid colon, descending colon, transverse colon and ascending colon to the ileocecal valve. The underside of the valve was seen. Appendiceal lumen was visualized. The scope was slowly withdrawn with air being desufflated as it was withdrawn. No gross tumors, polyps or diverticula were seen. The patient tolerated the procedure well and went to the Recovery Area in satisfactory condition. I recommend the patient repeat colonoscopy in 10 years for screening purposes unless problems. Estimated blood loss (mL): 0 Specimens: Esophageal and gastric biopsies Complications: No Condition: stable Disposition: PACU
[2024-05-26] MEDS: 0.9 % SODIUM CHLORIDE 500 ML 50 ML IV (08:42)
[2024-05-26 10:09] VITALS: BP 113/48; PULSE 71; TEMP 36.2; O2SAT 96
[2024-05-26 10:24] VITALS: BP 121/65; PULSE 76; O2SAT 99
[2024-05-26 10:39] VITALS: BP 125/82; PULSE 70; O2SAT 100
[2024-05-27 13:00] LABS: H Pylori Tissue, Urease Negative
== END 2024-05-26 10:56 | disposition home or self-care (01) ==
PROVIDERS: PCP Family Medicine; Visit Provider Surgery
PROC: (CPT 813; principal; 2024-05-26 09:25)
DX: K21.9 Gastro-esophageal reflux disease without esophagitis (principal); Z12.11 Encounter for screening for malignant neoplasm of colon; K29.50 Unspecified chronic gastritis without bleeding; Z80.0 Family history of malignant neoplasm of digestive organs; Z90.49 Acquired absence of other specified parts of digestive tract; R13.10 Dysphagia, unspecified; R11.0 Nausea
CPT/HCPCS: 43239; 45378; 87077; 99999; J1100; J2704

== ENCOUNTER 2024-06-04 07:45 | Outpatient (OUT) | payer BC, SELFPAY ==
--- OUTSIDE RECORDS SUMMARY | 2024-06-04 07:51 | XMS_ITS | CCD ---
Author Organization [facility] Care Team Providers Care Rn Clinical Review Name Role Phone LAURO ANDREA Attending Unavailable LAURO, ANDREA Consulting Unavailable LAURO, ANDREA Admitting Unavailable ROSS, SAIMA KAREN Consulting Unavailable ROSS, SAIMA KAREN Admitting Unavailable ROSS, SAIMA KAREN Attending Unavailable ROSS, SAIMA KAREN Consulting Unavailable ROSS, SAIMA KAREN Admitting Unavailable ROSS, SAIMA KAREN Attending Unavailable LAURO, ANDREA Admitting Unavailable LAURO, ANDREA Attending Unavailable LAURO, ANDREA Consulting Unavailable MD Valerio Cortes Primary Care Provider [phone] DO Bismark Falcon Attending Provider [phone] Mary Cortes Unavailable MD Valerio Cortes Primary Care Provider [phone] DO Bismark Falcon Attending Provider [phone] BISMARK FALCON Attending Unavailable BISMARK FALCON Attending Unavailable BISMARK FALCON Referring Unavailable BRAD GRANADOS Attending Unavailable VALERIO CORTES Referring Unavailable VALERIO CORTES Primary Care Unavailable Valerio Cortes MD Primary Care Provider [phone] DO Ruiz Glover Attending Provider [phone] Bismark Falcon Admitting Unavailable Valerio Cortes Primary Care Unavailable Bismark Falcon Attending Unavailable Valerio Cortes Primary Care Unavailable Ruiz Glover Attending Unavailable Ruiz Glover Admitting Unavailable Allergies Allergy Classification Reported Allergen(s) Allergy Type Date of Onset Reaction(s) Facility (5 sources) Codeine; Translations: [CODEINE] Drug Allergy 7 Rash, Rash, (Ferdinand) 06/17/2011 [facility] Repository (2 sources) Ibuprofen Drug Allergy 1 (Ferdinand) 06/17/2011 [facility] (7 sources) Ibuprofen; Translations: [IBUPROFEN] Drug Allergy 7 irregular heart rate, irregular heart rate, (Ferdinand) 06/17/2011 [facility] (3 sources) Codeine Drug Allergy 7 [facility] (1 source) Codeine Drug Allergy 4 [facility] Repository Medications Current Medications Medication Drug Class(es) Dates Sig (Normalized) Sig (Original) aluminum hydroxide 80 mg / magnesium trisilicate 14.2 mg chewable tablet (3 sources) Start: 05-14-2017 take 1 tablet by mouth once daily Al Hyd-Mg Tr-Alg Ac-Sod Bicarb (Gaviscon) 80-14.2 mg Tablet,Chewable Active 1 TAB PO Daily May 14, 2017 12:00am cholecalciferol 0.05 mg oral capsule (5 sources) Vitamin D Start: 03-18-2024 take 1 [...] Ora lly Once a day Active Citalopram (6 sources) Serotonin Reuptake Inhibitor Start: 01-30-2023 take [...] the morning. Active cod liver oiL oil (2 sources) take 2 capsules by mouth in the evening cod liver oiL oil Take 2 capsules by mouth in the evening. Active dextromethorphan hydrobromide 15 mg / guaiFENesin 400 mg / pseudoephedrine hydrochloride 60 mg oral tablet (1 source) alpha-Adrenergic Agonist, Uncompetitive V-uffauj-K-aspartate Receptor Antagonist, Sigma-1 Agonist Start: 07-31-20 take 4 tablets by mouth every twenty-four hours as needed Capmist DM 60-15-400 MG as needed Orally every 4-6 hours as needed, max 4 tablets in 24 hours for 5 days Jul, Active estradiol 1 mg oral tablet (5 sources) Estrogen Start: 02-24-20 estradioL (ESTRACE) 1 mg tablet Take 1 tablet (1 mg total) by mouth. 02/24/2024 Active take 1 tablet by venkatesh th every twenty-four hours Estradiol 1 MG 1 tablet Orally Once a day Active magnesium gluconate 500 mg oral tablet (2 sources) Start: 03-18-2024 take 27 mg by mouth once daily in the morning Magnesium Gluconate Active 27 MG PO Every morning March 18, 2024 12:00am Magnesium glycinate (2 sources) take 200 mg by mouth in the morning MAGNESIUM GLYCINATE ORAL Take 200 mg by mouth in the morning. Active medroxyPROGESTERone acetate 2.5 mg oral tablet (5 sources) Progestin Start: 01-30-2023 take 1 tablet by mouth in the morning medroxyPROGESTERone (PROVERA) 2.5 mg tablet Take 1 tablet (2.5 mg total) by mouth in the morning. 12/19/2023 Active methylPREDNISolone 4 mg oral tablet (1 source) Corticosteroid Start: 07-31-2023 methylPREDNISolone 4 MG as directed Orally for 6 Jul, Active xgefqqxq-woy-HP-lycopen -lutein (COMPLETE MV ADULT 50 PLUS) 0.4 mg-300 mcg- 250 mcg tablet (2 sources) take 1 tablet by mouth once in the morning qbzsyzsx-fsv-GD-lycope n-lutein (COMPLETE MV ADULT 50 PLUS) 0.4 mg-300 mcg- 250 mcg tablet Take 1 tablet by mouth in the morning. Active progesterone 100 mg oral capsule (3 sources) Progesterone Start: 03-18-2024 take 1 capsule by mouth once daily in the morning Progesterone Micronized Active 100 MG PO Every morning March 18, 2024 12:00am FreeTextSi capsule at bedtime Orally Once a day; Note: Source Status: Taking; Provider: Sebastian Hernandez ( ) take 1 capsule by mo [facility] every twenty-four hours Progesterone 100 MG 1 capsule at bedtime Orally Once a day Active simethicone 62.5 mg oral film (4 sources) Start: 05-14-2017 take 80 mg by [...] chloride-mag vaughn lf 1.479-0.188- 0.225 gram tablet (2 sources) Start: 05-19-2024 sod sulf-pot c hloride-mag sulf 1.479-0.188- 0.225 gram tablet Indications: Encounter for screening colonoscopy Please see instructional sheet given by physicians office. 24 tablet 05/19/2024 Active Completed/Discontinued Medications Medication Drug Class(es) Dates Sig (Normalized) Sig (Original) acetaminophen 325 mg / HYDROcodone bitartrate 5 mg oral tablet (3 sources) Opioid Agonist Start: 0 End: 3 take 1 tablet by mouth every six hours Hydrocodone-Acetaminoph en ([place]) 5-325 mg tablet Discontinued 1 TAB PO Q6H 10 3 October 03, 2019January 30, 2023 7:25am Aluminum Hydroxide / magnesium [...] Fiber-Caps Not-Taking/PRN hydroCHLOROthiazide 12.5 mg oral capsule (3 sources) Thiazide Diuretic Start: 7 End: 3 [...] May, Not-Taking/PRN melatonin 3 mg oral tablet (3 sources) Start: 7 End: 3 take 3 mg by mouth at bedtime Melatonin Discontinued 3 MG PO Bedtime May 14, 2017 12:00am January 30, 2023 7:25am ondansetron 4 mg oral tablet (4 sources) Serotonin-3 Receptor Antagonist Start: 7 End: [...] pantoprazole 40 mg delayed release oral tablet (6 sources) Proton Pump Inhibitor Start: 05-14-2017 End: 01-30-2023 take 1 tablet by mouth once daily Pantoprazole (Protonix) 40 mg tablet,delayed release (DR/EC) Discontinued 40 MG PO Daily 30 October 03, 2019 1:00am January 30, 2023 7:26am sucralfate 1000 mg oral tablet (3 sources) Aluminum Complex Start: 10-03-2019 End: 01-30-2023 take 1 tablet by mouth at bedtime Sucralfate (Carafate) 1 gram tablet Discontinued 1 GM PO Before meals and at bedtime 60 October 03, 2019 1:00am January 30, 2023 7:26am Problems Active Problems Problem Classification Problem Date Documented Da te Episodic/Chronic Esophageal disorders (7 sources) Gastro-esophageal reflux disease with esophagitis; Translations: [Gastroesophageal reflux disease with esophagitis] Onset: 05-19-2024 10-03-2019 Chronic Gastritis and duodenitis (1 source) Atrophic gastritis; Translations: [Unspecified chronic gastritis without bleeding] Chronic Nausea and vomiting (1 source) Nausea and vomiting; Translations: [Nausea with vomiting, unspecified] Episodic Nonspecific chest pain (3 sources) Chest pain; Translations: [Chest pain, unspecified] [...] conditions (not mental disorders or infectious disease) (3 sources) Encounter for screening for malignant neoplasm [...] Results Test Name Value Interpretation Reference Range Facility [facility] No Panel InformationOrdered By: Bismark Falcon on 03-18-2024 Miscellaneous Pathology Test See comment [facility] Comment on above: See report. Scanned copy available in EMR. Pathology Request for Lab Co rpon 03-18-2024 Pathology Request for Lab David Normal [facility] Comment on above: Order Comment: PATHO LOGY DIVIDER OPERATOR SPECIMEN Result Comment: See report. Scanned copy available in EMR. PERFORMED BY: [place] [address] PATHOLOGIST ASSISTANT PROSECUTING ATTORNEY HORACE BURKS M.D. Performed By: #### P ATH TO [facility] #### [address] COVID + FLU Quick Testingon 07-31-2023 SARS-CoV-2 (COVID-19) RNA MANUEL+probe Ql (Unsp spec) Negative [employer] [facility] Other COVID + FLU Quick Testing Negative [employer] [facility] Other Basophils Auto (Bld) [#/Vol] Ordered By: Bismark Falcon on 01-30-2023 Basophils (Bld) [#/Vol] 0.0 10*3/uL 0.0-0.2 [facility] Basophils/100 WBC Auto (Bld) Ordered By: Bismark Falcon on 01-30-2023 Basophils/100 WBC (Bld) 0.4 % . [facility] Eosinophils Auto (Bld) [#/Vo l]Ordered By: Bismark Falcon on 01-30-2023 Eosinophils (Bld) [#/Vol] 0.2 10*3/uL 0.0-0.45 [facility] Eosinophils/100 WBC Auto (Bl d)Ordered By: Bismark Falcon on 01-30-2023 Eosinophils/100 WBC (Bld) 3.3 % . [facility] Erythrocyte distribution wid th Auto (RBC) [Ratio]Ordered By: Bismark Falcon on 01-30-2023 Erythrocyte distribution width (RBC) [Ratio] 12.8 % 11.9-15.3 [facility] Hematocrit Auto (Bld) [Volum e fraction]Ordered By: Bismark Falcon on 01-30-2023 Hematocrit (Bld) [Volume fraction] 41.0 % 34.0-46.4 [facility] Hemoglobin [Mass/volume] in BloodOrdered By: Bismark Falcon on 01-30-2023 Hemoglobin (Bld) [Mass/Vol] 13.7 g/dL 11.8-15.4 [facility] Leukocytes [#/volume] correc pam for nucleated erythrocytes in Blood by Automated counOrdered By: Bismark Falcon on 01-30-2023 WBC corrected for nucl RBC Auto (Bld) [#/Vol] 7.6 10*3/uL 3.8-11.6 [facility] Lymphocytes Auto (Bld) [#/Vo l]Ordered By: Bismark Falcon on 01-30-2023 Lymphocytes (Bld) [#/Vol] 2.5 10*3/uL 1.00-4.8 [facility] Lymphocytes/100 WBC Auto (Bl d)Ordered By: Bismark Falcon on 01-30-2023 Lymphocytes/100 WBC (Bld) 32.9 % . [facility] MCH Auto (RBC) [Entitic mass ]Ordered By: Bismark Falcon on 01-30-2023 MCH (RBC) [Entitic mass] 29.5 pg 24.7-34.3 [facility] MCHC Auto (RBC) [Mass/Vol]Or dered By: Bismark Falcon on 01-30-2023 MCHC (RBC) [Mass/Vol] 33.5 g/dL 32.0-35.0 [facility] MCV Auto (RBC) [Entitic vol] Ordered By: Bismark Falcon on 01-30-2023 MCV (RBC) [Entitic vol] 88.0 fL 80-100 [facility] Monocytes Auto (Bld) [#/Vol] Ordered By: Bismark Falcon on 01-30-2023 Monocytes (Bld) [#/Vol] 0.5 10*3/uL 0.0-0.8 [facility] Monocytes/100 WBC Auto (Bld) Ordered By: Bismark Falcon on 01-30-2023 Monocytes/100 WBC (Bld) 6.6 % . [facility] Neutrophils Auto (Bld) [#/Vo l]Ordered By: Bismark Falcon on 01-30-2023 Neutrophils (Bld) [#/Vol] 4.3 10*3/uL 1.8-7.7 [facility] Neutrophils/100 WBC Auto (Bl d)Ordered By: Bismark Falcon on 01-30-2023 Neutrophils/100 WBC (Bld) 56.8 % . [facility] Nucleated erythrocytes [Pres ence] in Blood by Automated countOrdered By: Bismark Falcon on 01-30-2023 Nucleated RBC Auto Ql (Bld) 0.1 /100{WBC} 0-0.5 [facility] Platelet mean volume Auto (B ld) [Entitic vol]Ordered By: Bismark Falcon on 01-30-2023 Platelet mean volume (Bld) [Entitic vol] 8.4 fL 6.3-10.7 [facility] Platelets Auto (Bld) [#/Vol] Ordered By: Bismark Falcon on 01-30-2023 Platelets (Bld) [#/Vol] 310 10*3/uL 150-450 [facility] RBC Auto (Bld) [#/Vol]Ordere d By: Bismark Falcon on 01-30-2023 RBC (Bld) [#/Vol] 4.66 10*6/uL 3.60-5.00 [facility] WBC Auto (Bld) [#/Vol]Ordere d By: Bismark Falcon on 01-30-2023 WBC (Bld) [#/Vol] 7.6 10*3/uL 3.8-11.6 [facility] Covid-19 PCR ([facility])on 02-08 SARS-CoV-2 (COVID-19) RNA MANUEL+probe Ql (Unsp spec) Not detected Normal NOT DETECTED [facility] Comment on above: Result Comment: When [...] for this test is supported by the Mold Filling Operator of Health and Human Service's declaration [...] used). Performed By: #### C VDTB #### [facility] [address] [place] [id number] Mary Crump Covid-19 PCR ([facility])on 05-12 SARS-CoV-2 (COVID-19) RNA MANUEL+probe Ql (Unsp spec) Not detected Normal NOT DETECTED [facility] Comment on above: Result Comment: When diagnostic testing is negative, the possibility of a false negative should be considered in the context of a patient's recent exposures and the presence of clinical signs and symptoms consistent with SARS-CoV-2. Performed By: #### C VDTB #### [facility] [id number] Mary Crump Vital Signs Date Time Vital Sign Value Performing Clinician Facility 05-19-2024 12:54-0400 Body height 157.5 cm Bradbere Granados APRN-SODA CLERK Work Phone: [facility] 05-19-2024 12:54-0400 Body mass index (BMI) [Ratio] 30.62 kg/m2 Bradbere Granados APRN-SODA CLERK Work Phone: [facility] 05-19-2024 12:54-0400 Body weight 75.93 kg Brad Granados APRN-SODA CLERK Work Phone: [facility] 05-19-2024 12:54-0400 Diastolic blood pressure 94 mm[Hg] Brad Granados APRN-SODA CLERK Work Phone: [facility] 05-19-2024 12:54-0400 Heart rate 76 /min Brad Granados APRN-SODA CLERK Work Phone: [facility] 05-19-2024 12:54-0400 Systolic blood pressure 127 mm[Hg] Brad Granados APRN-SODA CLERK Work Phone: [facility] 03-18-2024 09:45-0400 Diastolic blood pressure 66 mm[Hg] MD Valerio Cortes Work Phone: [facility] 03-18-2024 09:45-0400 Heart rate 62 /min MD Valerio Cortes Work Phone: [facility] 03-18-2024 09:45-0400 Respiratory rate 16 /min MD Valerio Cortes Work Phone: [facility] 03-18-2024 09:45-0400 SaO2% (BldA) [Mass fraction] 96 % MD Valerio Cortes Work Phone: [facility] 03-18-2024 09:45-0400 Systolic blood pressure 111 mm[Hg] MD Valerio Cortes Work Phone: [facility] 03-18-2024 08:50-0400 Body temperature 98 [degF] MD Valerio Cortes Work Phone: [facility] 03-18-2024 08:25-0400 Inhaled oxygen flow rate 8 L/min MD Valerio Cortes Work Phone: [facility] 03-18-2024 06:36-0400 Body height 157.48 cm MD Valerio Cortes Work Phone: [facility] 03-18-2024 06:36-0400 Body weight 73.02 kg MD Valerio Cortes Work Phone: [facility] 07-31-2023 11:30-0500 Body height 157.48 cm Mary Cortes Other [facility] Other 07-31-2023 11:30-0500 Body mass index (BMI) [Ratio] 30.54 kg/m2 Mary Cortes Other [facility] Other 07-31-2023 11:30-0500 Body temperature 97.2 [degF] Mary Cortes Other [facility] Other 07-31-2023 11:30-0500 Body weight 75.75 kg Mary Cortes Other [facility] Other 07-31-2023 11:30-0500 Respiratory rate 18 /min Mary Cortes Other [facility] Other 07-31-2023 11:30-0500 SaO2% (BldA) [Mass fraction] 98 % Mary Cortes Other [facility] Other 01-30-2023 10:03-0400 Diastolic blood pressure 75 mm[Hg] MD Valerio Cortes Work Phone: [facility] 01-30-2023 10:03-0400 Heart rate 76 /min MD Valerio Cortes Work Phone: [facility] 01-30-2023 10:03-0400 Respiratory rate 16 /min MD Valerio Cortes Work Phone: [facility] 01-30-2023 10:03-0400 SaO2% (BldA) [Mass fraction] 94 % MD Valerio Cortes Work Phone: [facility] 01-30-2023 10:03-0400 Systolic blood pressure 120 mm[Hg] MD Valerio Cortes Work Phone: [facility] 01-30-2023 09:04-0400 Body temperature 97 [degF] MD Valerio Cortes Work Phone: [facility] 01-30-2023 07:28-0400 Body height 157.48 cm MD Valerio Cortes Work Phone: [facility] 01-30-2023 07:28-0400 Body weight 72.57 kg MD Valerio Cortes Work Phone: [facility] Encounters Encounter Date Encounter Type Care Provider Facility Start: 06-02-2024 End: 06-02-2024 Orders Only Belinda PETERSONA [facility] Comment on above: Gastroesophageal ref lux disease, unspecified whether esophagitis present; Encounter for screening colonoscopy Start: 05-26-2024 End: 05-26-2024 ambulatory MD Valerio Cortes Work Phone: [facility] Work Phone: Start: 05-26-2024 End: 05-26-2024 Departed Referred MD Valerio Cortes Work Phone: [facility] Start: 05-19-2024 End: 05-19-2024 Office outpatient new 30 minutes Brad Alethea Granados RUBBER STAMP ASSEMBLER-SODA CLERK Work Phone: [facility] Comment on above: Gastroesophageal ref lux disease, unspecified whether esophagitis present (Primary Dx); Encounter for screening colonoscopy Start: 05-19-2024 End: 05-19-2024 ambulatory [facility] Start: 03-29-2024 End: 03-29-2024 ambulatory BISMARK FALCON Not Available Start: 03-18-2024 End: 03-18-2024 Admission to same day surgery center MD [facility]er[facility]es [facility] Start: 03-18-2024 End: 03-18-2024 ambulatory MD Valerio Cortes Work Phone: [facility] Work Phone: Start: 03-12-2024 End: 03-12-2024 ambulatory BISMARK FALCON Not Available Start: 07-31-2023 End: 07-31-2023 ambulatory Mary Cortes Other [facility] Other Start: 07-31-2023 Office outpatient ne w 30 minutes Mary Cortes [facility] Start: 01-30-2023 End: 01-30-2023 Admission to same day surgery center MD Valerio Cortes [facility] Start: 01-30-2023 End: 01-30-2023 ambulatory MD Valerio Cortes Work Phone: [facility] Work Phone: Start: 02-19-2022 End: 02-19-2022 ambulatory ANDREA RESTREPO Facility:[facility] Start: 06-06-2021 End: 06-07-2021 ambulatory SAIMA PHAM Facility:[facility] Start: 06-01-2021 End: 06-02-2021 ambulatory SAIMA PHAM Facility:[facility] Start: 05-31-2021 End: 05-31-2021 ambulatory ANDREA RESTREPO Facility:[facility] Procedures Date Procedure Procedure Detail Performing Clinician Start: 05-26-2024 EGD / COLONOSCOPY Rubia Granados RUBBER STAMP ASSEMBLER-SODA CLERK Work Phone: Start: 03-18-2024 Hysteroscopy with endometrial ablation MD Valerio Cortes Work Phone: Start: 01-30-2023 Hysteroscopy with endometrial ablation MD Valerio Cortes Work Phone: Plan of Treatment Date Care Activity Detail Author Start: 05-19-2025 Adult BMI Screening Adult BMI Screen ing [facility] [employer] [facility] Start: 05-19-2025 Tobacco Screening Tobacco Screening [facility] Start: 04-11-2024 COVID-19 Vaccine ( season) COVID-19 Vaccine ( season) [facility] Start: 04-11-2024 Influenza vaccination Influenza Vacc ine [facility] Start: 03-18-2024 End: 03-18-2024 [facility] Start: 01-30-2023 [facility] Start: 2016 Administration of varicella zoster vaccine Zoster (Shingles) Vaccine (1 of 2) [facility] Start: 1987 Screening for malign ant neoplasm of cervix Pap Smear [facility] Start: 1985 DTaP,Tdap and Td Vaccines (1 - Tdap) DTaP,Tdap and Td Vaccines (1 - Tdap) [facility] Start: 1984 Adult BMI Follow Up Plan Adult BMI F ollow Up Plan [facility] Start: 1978 [facility] End: 05-19-2025 EGD / Colonoscopy EGD / Colonoscopy GI Routine Gastroesophageal reflux disease, unspecified whether esophagitis present Encounter for screening colonoscopy 1 Occurrences starting 05/19/2024 until 05/19/2025 [facility] Work Phone: Comment on above: 1 Occurrences starti ng 05/19/2024 until 05/19/2025 Patient Education Know your Meds [facility] Work Phone: Patient referral [facility] Work Phone: Immunizations Immunization Date Immunization Notes Care Provider [facility]-20[facility] influenza virus vaccine, unspecified formulation Brad Oliver RUBBER STAMP ASSEMBLER-SODA CLERK Work Phone: [employer] Payers Date Payer Category Payer Self-pay [id number] 2023 [employer] Managed Care - O ANTHEM [id number] 2023 Unknown ANTHBETH QUIÑONES ACCE SS (PPO) [id number] 2023-Present [phone] [address] [place] [address] [id number] 2023 Blue Cross Blue Shield [id number] 1966 Unknown [id number] 593 1966 Unknown [id number] 593 1966 Unknown [id number] 1259 1966 Unknown [id number] 1259 1966 Unknown [id number] 1959 Self-pay [id number] 1959 Unknown [id number] Unknown [id number] [id number] Unknown [id number] 593 Unknown [id number] 531 Unknown [id number] 531 Social History Date Type Detail Facility Start: 01-30-2023 End: 05-19-2024 Tobacco smoking status NHIS Never smoked tobacco (finding) [facility] Start: 1965 Sex Assigned At Female F [facility] Start: 05-19-2024 Sex Ass[address] At N [facility] [employer] Other Start: 05-19-2024 Tobacco use and exposure Smokeless tobacco non-user [facility] Start: 05-19-2024 Alcoholic beverage intake Lifetime non-drinker (finding) [facility] Start: 05-19-2024 History of Social function [facility] Start: 1965 Sex assigned at Not on file P [facility] Start: 05-11-2024 Sex Female (finding) [facility] Goals Date Patient Goal Desired Activity /State History of Present illness Narrative 05-19-2024 Brad Granados, LIBRA-SODA CLERK - 05/19/2024 1:00 PM EDT Note Date [...] cousin. 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 Review of Systems [...] Surgical History: Procedure Laterality Date CHOLECYSTECTOMY 2002 [facility] [address] VERA [facility] ESOPHAGOGASTRODUODENOSCOPY UNSURE OF DATE HYSTEROSCOPY 03/2024 [...] mouth in the morning., Disp: , Rfl: imgwylvw-xgg-DF-lycopen-lutein (COMPLETE MV ADULT 50 PLUS) 0.4 mg-300 [...] patient/family/caregiver Referring and communicating with other health pet care assistant Gastroesophageal reflux disease, unspecified whether esophagitis present [K21.9] AYANNA WHITAKER [facility] [place]/Reading This note was created with the assistance of a speech recognition program. While intending to generate a timely document that accurately reflects the content of the visit, no guarantee can be provided that every grammatical or spelling mistake has been or will be identified or corrected. Thank you for your understanding. AYANNA Whitaker 05/19/24 0933 documented in this encounter [facility] Evaluation note 07-31-2023 Note Date & Type [...] treatment plan. Patient left in stable condition [facility] Other History general Narrative - Reported 04-11-2008 Note Date & Type Note Facility 04-11-2008 History general N arrative - Reported Type Medical History irrregular heartbeat Medical History GERD Medical History Acute bronchitis Surgical History gallbladder removed 2002 Surgical History D&C x2 04/2008 Hospitalization History see above [facility] Other Evaluation note Note Date & Type Note Facility Evaluation note [facility]: Evaluation note Note Date & Type Note Facility Evaluation note Diagnosis Gastroesophageal reflux disease, unspecified whether esophagitis present- Primary Encounter for screening colonoscopy documented in this encounter [facility] Evaluation note Note Date & Type Note Facility Evaluation note Diagnosis Gastroesophageal reflux disease, unspecified whether esophagitis present Encounter for screening colonoscopy documented in this encounter [facility] Hospital Discharge instructions Note Date & [...] in an emergency, call the office at [[phone]]. TODAY -Take it easy the rest of [...] FOLLOW UP -Please call the office at [phone] to arrange an appointment to see me in 2 weeks [ ] [facility] Work Phone: Instructions Note Date & Type Note Facility Instructions Not on filedocumented in this en counter [facility] Instructions Note Date & Type Note Facility [...] Abnormal Uterine Ble eding, Hx of Polyps Chief Complaint Abnormal Uterine Ble eding, Hx of Polyps Unknown Additional Source Comments INFORMATION SOURCE (unrecogn ized section and content) DATE CREATED AUTHOR 02/27/2022 [facility] DATE CREATED AUTHOR AUTHOR'S ORGANIZ ATION 03/30/2024 [facility] EPIC DATE CREATED AUTHOR AUTHOR'S ORGANIZ ATION 05/21/2024 [facility] DATE CREATED AUTHOR AUTHOR'S ORGANIZ ATION 05/28/2024 [facility] Care Teams (unrecognized sec tion and content) Team Status: Active Member Role Status Dates Valerio Cortes MD Primary Care Provider Active Team Status: Inactive Member Role Status Dates Valerio Cortes MD Primary Care Provider Active Bismark Falcon DO Attending Provider Active Team Status: Inactive Member Role Status Dates Valerio Cortes MD Primary Care Provider Active Start: March 18, 2024 End: March 18, 2024 Bismark Falcon DO Attending Provider Active Start: March 18, 2024 End: March 18, 2024 Rn Clinical Review Relationship Specialty Start Date End Date Valerio Cortes MD [address] [place] [address] PCP - General Family Medicine 05/11/24 Team Status: Inactive Member Role Status Dates Valerio Cortes MD Primary Care Provider Active Start: May 26, 2024 End: May 26, 2024 Ruiz Glover DO Attending Provider Active Start: May 26, 2024 End: May 26, 2024 Rn Clinical Review Relationship Specialty Start Date End Date Valerio Cortes MD [address] [place], [place] [id number] PCP - General Family Medicine 05/11/24 REASON [...] BE BASED ON THE PRIMARY CLINICAL RECORDS. [employer] [facility]. provides no warranty or guarantee of the accuracy or completeness of information in this document.
[2024-06-04 08:11] LABS: Basophils Absolute Auto 0.1 10^3/uL (0.0-0.1); Basophils Percent Auto 1.1 % (0.2-2.0); Eosinophils Absolute Auto 0.2 10^3/uL (0.0-0.7); Eosinophils Percent Auto 2.1 % (0.9-7.0); Immature Granulocytes Abs Auto 0.03 10^3/uL (0.00-0.03); Immature Granulocytes Pct Auto 0.3 % (0.0-0.5); Lymphocytes Absolute Auto 2.7 10^3/uL (1.2-3.8); Lymphocytes Percent Auto 29.5 % (20.5-60.0); Mean Corpuscular HGB Conc 32.6 g/dL (29.9-35.2); Mean Corpuscular Hemoglobin 29.7 pg (26.7-34.0); Mean Corpuscular Volume 91.3 fL (81.0-99.0); Mean Platelet Volume 9.8 fL (9.5-13.5); Monocytes Absolute Auto 0.7 10^3/uL (0.3-0.8); Monocytes Percent Auto 7.5 % (1.7-12.0); Neutrophils Absolute Auto 5.4 10^3/uL (1.4-6.5); Neutrophils Percent Auto 59.5 % (43.0-75.0); Platelet Count 334 10^3/uL (150-450); Red Blood Count 4.71 10^6/uL (4.20-5.40); Red Cell Distribution Width 12.6 % (11.0-15.0); White Blood Count 9.1 10^3/uL (4.0-11.0)
[2024-06-04 08:25] LABS: Estimated Average Glucose 100 mg/dL; Glycohemoglobin A1C 5.1 % (4.5-6.2)
[2024-06-04 08:40] LABS: Alanine Aminotransferase 27 U/L (14-59); Albumin Level 3.2 g/dL (3.4-5.0); Alkaline Phosphatase 67 U/L (46-116); Anion Gap 15.9; Aspartate Amino Transferase 22 U/L (15-37); Bilirubin Total 0.5 mg/dL (0.2-1.0); Calcium 8.7 mg/dL (8.5-10.1); Carbon Dioxide 25.1 mmol/L (21.0-32.0); Chloride 106 mmol/L (98-107); Chol HDL Ratio 2.5; Cholesterol 165 mg/dL (<=200); Estimated GFR (African America >60 (>=60 mL/min/1.73m^2); Estimated GFR (Non-African Ame >60 (>=60 mL/min/1.73m^2); Globulin 3.3 g/dL; Glucose 90 mg/dL (74-106); HDL Cholesterol 65 mg/dL (40-60); Sodium 143 mmol/L (136-145); Thyroid Stimulating Hormone 2.131 uIU/mL (0.358-3.740); Total Protein 6.5 g/dL (6.4-8.2); Triglycerides 175 mg/dL (<=150)
[2024-06-04 09:07] LABS: Free T4 0.78 ng/dL (0.76-1.46)
== END 2024-06-04 07:46 | disposition home or self-care (01) ==
LOC: LAB 07:47
PROVIDERS: PCP Family Medicine; Visit Provider Family Medicine
DX: Z00.00 Encounter for general adult medical examination without abnormal findings (principal); I10 Essential (primary) hypertension; E78.00 Pure hypercholesterolemia, unspecified; R79.9 Abnormal finding of blood chemistry, unspecified; E55.9 Vitamin D deficiency, unspecified
CPT/HCPCS: 36415; 80053; 80061; 82306; 83036; 84439; 84443; 85025

== ENCOUNTER 2025-06-08 10:25 | Outpatient (OUT) | payer BC, SELFPAY ==
--- OUTSIDE RECORDS SUMMARY | 2025-06-08 10:31 | XMS_ITS | Clinical Summary ---
Author Organization [facility] Address [address] [place] [address] Care Team Providers Care Gas And Oil Checker Name Role Phone Unavailable Primary Care Provider Unavailabl e Allergies Active AllergyReactionsCriticalityNoted FduoKiilbynaOzibcuaIerzOfqkyl45/24/2007 NsrjtxthaNqjl54/24/2007 Irregualr heart rate Medications MedicationSigDispense QuantityRefillsLast FilledStart DateEnd DateStatus Fnzuferm-Tb-Zgw-Fe-FA ( VITAMIN) ORAL Tab Take one(1) tablet daily.ctive ranitidine (ZANTAC) 150 mg ORAL Tab Take one(1) tablet daily HQW826ctive atenolol (TENORMIN) 25 mg ORAL Tab 1/2 tablet daily as needed for palpitations 100 12001/01/2007ctive Active Problems ProblemNoted DateDiagnosed PjvtRrjtycelpmzc27/24/2007 Social History Tobacco UseTypesPacks/DayYears UsedDateSmoking Tobacco: Never Assessed CommentsNoSex and Gender InformationValueDate RecordedSex Assigned at BirthNot on fileLegal EcmUwyfin85/02/2012 8:08 AM ESTGender IdentityNot on fileSexual OrientationNot on file Last Filed Vital Signs Vital SignReadingTime TakenCommentsBlood Godedbfe364/60001/01/2007 8:46 AM EDT Mxeqy511001/01/2007 8:46 AM EDTTemperature--Respiratory Rate--Oxygen Saturation-- Inhaled Oxygen Concentration--Sxdvkz01.8 kg (145 lb)01/01/2007 8:46 AM EDTHeight 157.5 cm (5' 2 )01/01/2007 8:46 AM EDTBody Mass Index26.52001/01/2007 8:46 AM EDT Plan of Treatment Health MaintenanceDue DateLast DoneCommentsAnxiety Loskzdeic16/07/1984Depression Wjvwhohht80/07/1984HIV Dhcchvkdt05/07/1984Hepatitis C Igpnjeybf79/07/1984 DTaP,Tdap,Td Vaccine (1 - Tdap)1985Hepatitis B Vaccine (1 of 3 - 19+ 3- dose series)1985Cervical Cancer Mfqnztlte30/07/1987Mammogram Screening 2006CT Mbplwinideav56/07/2011Cologuard (FIT-DNA)2011Colonoscopy 2011Colorectal Cancer Agcmhskkh82/07/2011Diabetes Hlbubujfk21/07/2011Fecal Occult Blood2011Lipid Uefjzisnv53/07/7188Fijspbbvdzcgr94/07/2011 Pneumococcal Vaccine: 50+ (1 of 1 - PCV)2016Shingrix Vaccine (1 of 2) 2016Covid-19 Vaccine (1 - 2024- season)2025Influenza Vaccine (#1) 2025 Insurance * Guarantor: Margaret Mariscal TypeRelation to PatientDate of BirthPhone Billing AddressPersonal/XxkelxOxtu1965 [address] [id number] * Guarantor: Margaret Mariscal TypeRelation to PatientDate of BirthPhone Billing AddressSelf HnlHzca51 [address] [address]
--- OUTSIDE RECORDS SUMMARY | 2025-06-08 10:31 | XMS_ITS | Clinical Summary ---
Author Organization [facility] Address [address] [place] [address] Care Team Providers Care Bottoming Room Inspector Name Role Phone Valerio Cortes MD Primary Care Provider + [phone] Allergies Active AllergyReactionsCriticalityNoted AhtuAljjyqciKknnxho14/19/2023 Other Reaction(s): Unknown Vcovctunj29/19/2023 Other Reaction(s): Unknown Medications MedicationSigDispense QuantityRefillsLast FilledStart DateEnd DateStatus cholecalciferol (Vitamin D3) 500 Unit split tablet Take by mouth DailyActive DULoxetine (Cymbalta) [address] capsule Take 60 mg by mouth Daily5Active lidocaine (Xylocaine) 2 % solution TAKE 10 ML WITH MYLANTA 4 TIMES A DAY NEEDED FOR ESOPHOGEAL SPASM12/23/2024 Active pantoprazole (ProtoNix) 40 MG EC tablet Take 40 mg by mouth Daily5Active LYCOPENE PO Take 1 tablet by mouth in the morning.Active estradiol (Estrace) 1 MG tablet Indications:Hormone replacement therapy (HRT)Take 1 tablet (1 mg) by mouth in the morning. 90 tablet 5Active medroxyPROGESTERone (Provera) 2.5 MG tablet Indications:Hormone replacement therapy (HRT)Take 1 tablet (2.5 mg) by mouth in the morning. 90 tablet 5Active oxybutynin XL (Ditropan-XL) 10 MG 24 hr tablet Indications:Urinary urgencyTake 1 tablet (10 mg) by mouth Daily Do not crush, chew, or split. 90 tablet /6Active Active Problems ProblemNoted DateDiagnosed ApjkFoefihoz28/19/2023enuine stress incontinence, qclnqe6701/27/2023Menopausal ixkwtyzl66/19/6223Rsljlrgxfizt98/24/2007 Encounters DateTypeDepartmentCare GrjtOnlsvchzhkt99/20/2025 11:00 AM EDTOffice Visit [facility] [address] [place] [id number] Bismark Hayes, DO Encounter for gynecological examination without abnormal finding (Primary Dx); Screening for malignant neoplasm of cervix; Breast cancer screening by mammogram; Postmenopausal HRT (hormone replacement therapy); Hormone replacement therapy (HRT); Weight gain; Urinary hidxhpy3003/30/2025Travelfrom Last 3 Months Immunizations ImmunizationAdministration DatesNext DueInfluenza, High Dose Seasonal, Preservative Free04/10/2020Influenza, injectable, quadrivalent, preservative free03/06/2022Moderna Bivalent Booster Ynrqkgjizmd15/14/2022 Family History Medical HistoryRelationNameCommentsLung cancerBrotherBradysmall cell R lung stage III, now stage V.CancerMaternal GrandmotherRuthColon cancerMaternal GrandmotherRuthUterine cancerMaternal GrandmotherRuthDiabetesMaternal Great-GrandmotherArthritisMotherRuthCancerMotherRuthOsteoporosisMotherRuth Thyroid diseaseMotherRuthUterine cancerMotherRuthchronic lung diseaseMotherRuth CancerMother's Sister 1ScarlettThyroid diseaseMother's Sister 1ScarlettCancer Mother's Sister 2VeraThyroid diseasePaternal GrandfatherBillRelationNameStatus CommentsBrotherBradyDeceasedCousinOthercolon cancerFatherDeceasedbiological fatherMaternal GrandmotherRuthMaternal Great-GrandmotherAliveMotherRuthAlive Mother's Sister 1ScarlettMother's Sister 2VeraPaternal GrandfatherBill Social History Tobacco UseTypesPacks/DayYears UsedDateSmoking Tobacco: NeverSmokeless Tobacco: NeverAlcohol UseStandard Drinks/WeekCommentsNever0 (1 standard drink = 0.6 oz pure alcohol)Caffeine intake: 2-3 cups per day teaAUDIT-CAnswerDate RecordedQ1: How often do you have a drink containing alcohol?Monthly or less03/30/2025Q2: How many drinks containing alcohol do you have on a typical day when you are drinking?1 or Q3: How often do you have six or more drinks on one occasion?Never03/30/2025PHQ-2AnswerDate RecordedPatient Health Questionnaire-2 Ifkna932CommentsNoSex and Gender InformationValueDate Recorded Sex Assigned at NinpuFrvfib34/19/2023 10:48 AM EDTLegal SfwQwdguz54/15/2023 6:53 PM EDTGender DfdxiuyeRgdagt92/19/2023 10:48 AM EDTSexual OrientationNot on file Last Filed Vital Signs Vital SignReadingTime TakenCommentsBlood Yrjieriq068/8403/30/2025 10:57 AM EDT Pulse--Temperature--Respiratory Rate--Oxygen Saturation--Inhaled Oxygen Concentration--Ncsema15 kg (172 lb)03/30/2025 10:57 AM EEKXyzaxe783.5 cm (5' 2 ) 03/30/2025 10:57 AM EDTBody Mass Index31.46003/30/2025 10:57 AM EDT Plan of Treatment DateTypeDepartmentCare Team (Latest Contact Info)Mqygcfzpgnq03/24/2026 10:45 AM EDTOffice Visit [facility] [address] [facility] [address] [place] [phone] Bismark Hayes, [address] [facility] [address] [place] [address] Health MaintenanceDue DateLast DoneCommentsCT Jazrtgnlzfvy1966Colonoscopy 1966Colorectal Cancer Mckjfwdxw1966FIT-DNA1966FIT1965 FOBT1965 7623Puluoxjbnjtdt78/07/8933Ttnqmfzoe10/28/202506/, 05/18/2022, 2021, Additional history existsInfluenza Vaccine (#1)507/, 04/10/2020Pap Smear708/09/2023, 03/07/2023ervical Cancer Screening 03/30/2030HPV/Jssdru53, 03/07/2023, 03/06/2022, Additional history exists Procedures Procedure NamePriorityDate/TimeAssociated DiagnosisCommentsIGP, APT HPV,RFX 16/18,34Yyvnxdy12/20/2025 12:00 AM EDT Screening for malignant neoplasm of cervix THINPREP TIS PAP AND HPV MRNA E6/E7 WITH REFLEX TO HPV 16,18/27Bbmkoca09/02/2024 12:00 AM EDT Screening for malignant neoplasm of cervix MM TOMOSYNTHESIS SCREENING BI02/06/2024 2:20 PM EDT from Last 3 Months or Most Recently Relevant to Health Maintenance Results * IGP, APT HPV,RFX 16/18,45 (03/30/2025 12:00 AM EDT)ComponentValueRef RangeTest MethodAnalysis TimePerformed AtPathologist SignatureDiagnosis:CommentLABC[facility]P Comment:NEGATIVE FOR INTRAEPITHELIAL LESION OR MALIGNANCY.Specimen Adequacy: CommentLABCORPComment: Satisfactory for evaluation. ??Endocervical and/or squamous metaplastic cells (endocervical component) are present. Clinician Provided ICD10:CommentLABCORPComment:Z12.4Performed By:CommentLABCORP Comment:Noreen Ndiaye, Instrument Mechanic [employer] ([facility])Cyto Comments.LABCORPNote:CommentLABC[facility] Comment: The Pap smear is a screening test designed to aid in the detection of premalignant and malignant conditions of the uterine cervix. ??It is not a diagnostic procedure and should not be used as the sole means of detecting cervical cancer. ??Both false-positive and false-negative reports do occur. Test Methodology:CommentLABCORPComment: This liquid based ThinPrep(R) pap test was screened with the use of an image guided system. HPV AptimaNegativeNegativeLABCORPComment: This nucleic acid amplification test detects fourteen high-risk HPV types (16,18,31,33,35,39,45,51,52,56,58,59,66,68) without differentiation. Specimen (Source)Anatomical Location / LateralityCollection Method / Volume Collection TimeReceived TpjuImec98/ Narrative [facility] - 04/01/2025 5:07 PM EDT Performed at: 01 - [facility] ??[id number] Back Tender Fourdrinier: Maricruz Tomlinson MD, Phone: ??[phone] Performed at: ??02 - [facility] [address] ??[id number] Back Tender Fourdrinier: Maricruz Tomlinson MD, Phone: ??[phone] Specimen Comment: No. of containers..01 ThinPrep Vial Authorizing ProviderResult TypeResult StatusWillstephen Hayes [facility] BLOOD ORDERABLESFinal ResultPerforming OrganizationAddressCity/State/ZIP CodePhone Number [facility] * THINPREP TIS PAP AND HPV MRNA E6/E7 WITH REFLEX TO HPV 16,18/45 (03/12/2024 12:00 AM EDT)ComponentValueRef RangeTest MethodAnalysis TimePerformed At Pathologist SignatureCLINICAL INFORMATIONQUESTComment:None givenLMPQUEST Comment:2020PREV. PAPQUESTComment:NEGPREV. BXQUESTComment:None givenSOURCE QUESTComment:None givenSTATEMENT OF ADEQUACYQUESTComment: Satisfactory for evaluation. Endocervical/transformation zone component present. INTERPRETATION/RESULTQUESTComment: Cytology Results: Negative for intraepithelial lesion or malignancy. COMMENTQUESTComment: This Pap test has been evaluated with computer assisted technology. CYTOTECHNOLOGISTQUESTComment: LXT, CT(ASCP) CT screening location: [facility], [address] [place] [address], [place] [address]. (ALWAYS MESSAGE)QUESTComment: EXPLANATORY NOTE: The Pap is a screening test for cervical cancer. It is not a diagnostic test and is subject to false negative and false positive results. It is most reliable when a satisfactory sample, regularly obtained, is submitted with relevant clinical findings and history, and when the Pap result is evaluated along with historic and current clinical information. HPV MRNA E6/E7Not DetectedNot DetectedQUESTComment: Methodology: House Father-Mediated Amplification This assay detects E6/E7 viral messenger RNA (mRNA) from 14 high-risk HPV types (16,18,31,33,35,39,45,51,52,56,58,59,66,68). Cervical sources are required for HPV testing. If a vaginal source from a patient who has had a total hysterectomy with removal of cervix was submitted, please contact the testing laboratory for alternative testing options. For additional information, please refer to http://education.Mingyian/faq/OIH194w0 (This link if provided for information/ educational purposes only.) Specimen (Source)Anatomical Location / LateralityCollection Method / Volume Collection TimeReceived TimeSwab (Endocervix)/10/2023 2:47 AM EDT Narrative Resulting Agency Comment Performing Organization Information ?Site ID: [id number] ?Name: [facility] ?Address: [address] [place] [id number] ?Director: Bang Rush MD Authorizing ProviderResult TypeResult StatusWileonardo Hayes [facility] CYTOLOGY ORDERABLESFinal ResultPerforming OrganizationAddressCity/State/ZIP CodePhone Number [facility]ST * MM TOMOSYNTHESIS SCREENING BI (02/06/2024 2:20 PM EDT)Anatomical Region LateralityModalityOtherSpecimen (Source)Anatomical Location / Laterality Collection Method / VolumeCollection TimeReceived Time02/06/2024 2:20 PM EDT Narrative 02/06/2024 2:22 PM EDT [facility] ?[address] ? [place] [address] ? Mammography Report ? Signed ? Patient: AGUEDA SCOTT ?MR#: [id number] ?? : 1965 ?Acct:[id number] ?? Age/Sex: 58 / F ?ADM Date: //24 ?? Loc: US ? Attending Dr: BISMARK HAYES ? Ordering Physician: BISMARK HAYES ? Results: ? Date of Service: 02/06/24 ?Follow Up: ? Procedure(s): MM tomosynthesis screening BI ?? Accession Number(s): [id number] ? cc: BISMARK HAYES ; VALERIO CORTES ? Patient Name: ? AGUEDA SCOTT ? MR#: [id number] ? : 1965 ? Exam Date: 02/06/2024 ?? Ordering Doctor: DR BISMARK HAYES ? RADIOLOGY REPORT ? PROCEDURE: ? MM TOMOSYNTHESIS SCREENING BI ? COMPARISON: ? MM TOMOSYNTHESIS SCREENING BI, 03/24/2020. ??MM TOMOSYNTHESIS ?? SCREENING BI, 2021. ? INDICATIONS: ? ENCOUNTER FOR SCREENING FOR MALIGNANT OF BREAST ? Calculator Name ? NCI Breast Cancer Risk Assessment Tool ?? 5 Year Breast Cancer Risk ? 1.50% ?? Lifetime Breast Cancer Risk ? 9.10% ?? Personal Breast Cancer ?No ?? Personal Ovarian Cancer ? No ?? Treatments ? None ?? Family Cancers ? Mother with uterine cancer at age 25; Mother with colon ?? cancer at age 52; Aunt-maternal with uterine cancer at age ??30; ?? Aunt-maternal with uterine cancer at age ??30. ? LOCATION: ? [facility] ? BREAST COMPOSITION: ? The breasts are heterogeneously dense,which may ?? obscure small masses. ? FINDINGS: ? DIAGNOSTIC CATEGORY 2--BENIGN FINDING. NO CHANGE FROM COMPARISON. ? Scattered benign-appearing nodules are present. ??Scattered benign-appearing ?? calcifications are present. ??Scattered benign-appearing lymph nodes are ?? present. ? RIGHT BREAST: ??No significant suspicious finding. ? LEFT BREAST: ??No significant suspicious finding. ? RECOMMENDATIONS: ? ROUTINE MAMMOGRAM AND CLINICAL EVALUATION IN 12 MONTHS. ? PLEASE NOTE: ??A NORMAL MAMMOGRAM DOES NOT EXCLUDE THE POSSIBILITY OF BREAST ?? CANCER. ??A CLINICALLY SUSPICIOUS PALPABLE LUMP SHOULD BE BIOPSIED. ? Dictated by: Jayjay Hubbard MD on 02/06/2024 at 14:19 ? Approved by: Jayjay Hubbard MD on 02/06/2024 at 14:20 ? Dictated By: ?Jayjay Hubbard M.D. ? Signed By: ?02/05/ 1422 ? DD/ 1420 ? TD/TT: ? Training Engineer: Procedure Note Radiology, Radiologist, - 02/06/2024 [place] [address] Mammography Report Signed Patient: AGUEDA SCOTT [facility]#: [id number] : 1965Acct:[id number] Age/Sex: 58 / FADM Date: 02/06/24 Loc: US Attending Dr: BISMARK HAYES Ordering Physician: BISMARK HAYESResults: Date of Service: 02/06/24Follow Up: Procedure(s): MM tomosynthesis screening BI Accession Number(s): [id number] cc: BISMARK HAYES ; VALERIO CORTES Patient Name: AGUEDA SCOTT MR#: [id number] : 1965 Exam Date: 02/06/2024 Ordering Doctor: DR BISMARK HAYES RADIOLOGY REPORT PROCEDURE: MM TOMOSYNTHESIS SCREENING BI COMPARISON: MM TOMOSYNTHESIS SCREENING BI, 03/24/2020. MMTOMOSYNTHESIS SCREENING BI, 2021. INDICATIONS: ENCOUNTER FOR SCREENING FOR MALIGNANT OF BREAST Calculator Name NCI Breast Cancer Risk Assessment Tool 5 Year Breast Cancer Risk 1.50% Lifetime Breast Cancer Risk 9.10% Personal Breast Cancer No Personal Ovarian Cancer No Treatments None Family Cancers Mother with uterine cancer at age 25; Mother with colon cancer at age 52; Aunt-maternal with uterine cancer at age 30; Aunt-maternal with uterine cancer at age 30. LOCATION: [facility] BREAST COMPOSITION: The breasts are heterogeneously dense,which may obscure small masses. FINDINGS: DIAGNOSTIC CATEGORY 2--BENIGN FINDING. NO CHANGE FROM COMPARISON. Scattered benign-appearing nodules are present. Scatteredbenign-appearing calcifications are present. Scattered benign-appearing lymph nodes are present. RIGHT BREAST: No significant suspicious finding. LEFT BREAST: No significant suspicious finding. RECOMMENDATIONS: ROUTINE MAMMOGRAM AND CLINICAL EVALUATION IN 12 MONTHS. PLEASE NOTE: A NORMAL MAMMOGRAM DOES NOT EXCLUDE THE POSSIBILITY OFBREAST CANCER. A CLINICALLY SUSPICIOUS PALPABLE LUMP SHOULD BE BIOPSIED. Dictated by: Jayjay Hubbard MD on 02/06/2024 at 14:19 Approved by: Jayjay Hubbard MD on 02/06/2024 at 14:20 Dictated By: Jayjay Hubbard M.D. Signed By:02/06/24 1422 DD/ 1420 TD/TT: Training Engineer: Authorizing ProviderResult TypeResult StatusWilliasteph Hayes [facility] Final Result from Last 3 Months or Most Recently Relevant to Health Maintenance Insurance * Guarantor: Agueda Scott AAccount TypeRelation to PatientDate of BirthPhone Billing AddressPersonal/TbplqdGukh1965 [address] [address] Care Teams Team MemberRelationshipSpecialtyStart DateEnd Date Valerio Cortes MD [address] [place] [address] PCP - GeneralFamily Medicine01/27/23
--- OUTSIDE RECORDS SUMMARY | 2025-06-08 10:31 | XMS_ITS | Clinical Summary ---
Author Organization [facility] tem Address [id number] [address] [place] [address] Care Team Providers Care Real Estate Investor Name Role Phone Valerio Cortes MD Primary Care Provider [phone] Allergies Active AllergyReactionsCriticalityNoted KxsfQfwftjhhGxtjafvVzkpPolcvo57/24/2007 Other Reaction(s): Unknown FphvihpkxJxgs80/24/2007 Other Reaction(s): Unknown Irregualr heart rate Medications MedicationSigDispense QuantityRefillsLast FilledStart DateEnd DateStatus cholecalciferol, vitamin D3, (VITAMIN D3) 500 units tablet Take 10 split tablet (5,000 Units total) by mouth in the morning.Active citalopram (CeleXA) 20 mg tablet Take 1 tablet (20 mg total) by mouth in the morning.Active estradioL (ESTRACE) 1 mg tablet Take 1 tablet (1 mg total) by mouth.02/24/2024ctive medroxyPROGESTERone (PROVERA) 2.5 mg tablet Take 1 tablet (2.5 mg total) by mouth in the morning.12/19/2023ctive MAGNESIUM GLYCINATE ORAL Take 200 mg by mouth in the morning.Active kahcptpf-ing-JN-lycopen-lutein (COMPLETE MV ADULT 50 PLUS) 0.4 mg-300 mcg- 250 mcg tablet Take 1 tablet by mouth in the morning.Active cod liver oiL oil Take 2 capsules by mouth in the evening.Active sod sulf-pot chloride-mag sulf 1.479-0.188- 0.225 gram tablet Indications:Encounter for screening colonoscopyPlease see instructional sheet given by physicians office. 24 tablet 05/19/2024ctive Active Problems No known active problems Family History Medical HistoryRelationNameCommentsLung cancerBrotherColon cancerCousinLung diseaseMaternal Aunt 1VERAMultiple sclerosisMaternal Aunt 1VERAUterine cancer Maternal Aunt 1VERALung diseaseMaternal Aunt 2SCARLETTUterine cancerMaternal Aunt 2SCARLETTCancerMaternal GrandmotherColon cancerMaternal GrandmotherUterine cancerMaternal GrandmotherLung cancerMaternal UncleHearing lossMother HypothyroidismMotherLung diseaseMotherUterine cancerMotherRelationNameStatus CommentsBrotherAliveCousinMaternal Aunt 1VERADeceasedMaternal Aunt 2SCARLETT DeceasedMaternal GrandmotherDeceasedMaternal UncleDeceasedMotherAlive Social History Tobacco UseTypesPacks/DayYears UsedDateSmoking Tobacco: NeverSmokeless Tobacco: Never Tobacco Cessation:Counseling Given: Not Answered Alcohol UseStandard Drinks/WeekCommentsNever0 (1 standard drink = 0.6 oz pure alcohol)CommentsUnknownSex and Gender InformationValueDate RecordedSex Assigned at BirthNot on fileLegal HblEazvbw71/01/2024 11:28 AM EDTGender IdentityNot on fileSexual OrientationNot on file Last Filed Vital Signs Vital SignReadingTime TakenCommentsBlood Uamrvint550/9405/19/2024 12:54 PM EDT Unzow582005/19/2024 12:54 PM EDTTemperature--Respiratory Rate--Oxygen Saturation-- Inhaled Oxygen Concentration--Cnlanw59.9 kg (167 lb 6.4 oz)05/19/2024 12:54 PM IDEMcszox324.5 cm (5' 2 )05/19/2024 12:54 PM EDTBody Mass Index30.6205/19/2024 12:54 PM EDT Plan of Treatment Health MaintenanceDue DateLast DoneCommentsDepression Kpsezcbgv01/07/1978 DTaP,Tdap and Td Vaccines (1 - Tdap)1985Pap Smear1987Zoster (Shingles) Vaccine (1 of 2)2016COVID-19 Vaccine ( season) , 06/06/2021, 09/13/2020, Additional history existsInfluenza Tsdjost74/01/418451/, 04/10/2020Adult BMI Jpuqjuscf67 Tobacco Dykhsjdyh09/7116Mjtlrkvsvsx36 Medical Devices Not on file Insurance Care Teams Team MemberRelationshipSpecialtyStart DateEnd Date Valerio Cortes MD [address] [place] [address] PCP - GeneralFamily Baqkzvjg97/1/24
[2025-06-08 11:14] LABS: Hematocrit 43.2 % (36.0-48.0); Hemoglobin 14.0 g/dL (12.0-16.0); Immature Granulocytes Abs Auto 0.02 10^3/uL (0.00-0.03); Immature Granulocytes Pct Auto 0.2 % (0.0-0.5); Lymphocytes Absolute Auto 2.8 10^3/uL (1.2-3.8); Mean Corpuscular HGB Conc 32.4 g/dL (29.9-35.2); Mean Corpuscular Hemoglobin 29.0 pg (26.7-34.0); Mean Corpuscular Volume 89.4 fL (81.0-99.0); Platelet Count 348 10^3/uL (150-450); Red Blood Count 4.83 10^6/uL (4.20-5.40); White Blood Count 8.5 10^3/uL (4.0-11.0)
[2025-06-08 12:34] LABS: Alanine Aminotransferase 21 U/L (14-59); Albumin Globulin Ratio 1.1; Albumin Level 3.6 g/dL (3.4-5.0); Alkaline Phosphatase 64 U/L (46-116); Anion Gap 12.6; Aspartate Amino Transferase 14 U/L (15-37); Blood Urea Nitrogen 7.0 mg/dL (7.0-18.0); Calcium 8.9 mg/dL (8.5-10.1); Carbon Dioxide 26.4 mmol/L (21.0-32.0); Chloride 105 mmol/L (98-107); Cholesterol 155 mg/dL (<=200); Estimated GFR (African America >60 (>=60 mL/min/1.73m^2); Estimated GFR (Non-African Ame >60 (>=60 mL/min/1.73m^2); Globulin 3.2 g/dL; Glucose 86 mg/dL (74-106); HDL Cholesterol 55 mg/dL (40-60); Potassium 4.0 mmol/L (3.5-5.1); Sodium 140 mmol/L (136-145); Thyroid Stimulating Hormone 1.740 uIU/mL (0.358-3.740); Total Protein 6.8 g/dL (6.4-8.2); Triglycerides 111 mg/dL (<=150); VLDL CHOLESTEROL 22.2 mg/dL
== END 2025-06-08 10:26 | disposition home or self-care (01) ==
PROVIDERS: PCP Family Medicine; Visit Provider Family Medicine
DX: Z00.00 Encounter for general adult medical examination without abnormal findings (principal); I10 Essential (primary) hypertension
CPT/HCPCS: 36415; 80053; 80061; 84439; 84443; 85025